=== PATIENT | female | born 1950 | race Caucasian/White ===

== ENCOUNTER → 2017-03-14 | Outpatient (CLI) | payer OTHER ==
[2016-05-27 15:00] VITALS: BP 128/74
[~2017-03-14] MED LIST: AMIT25TA PO; ASPI-630 PO; BUDE10.2 IH; CALC-507 PO; CEPH-264 PO; CRESTOR10 MG PO; DILT120C80 PO; DOXY100T PO; FAMC500T PO; FURO20TA3 PO; HYDR-2678 PO; IPRA4AER IH; LEVO40CA PO; LINA145C PO; LISI2.5T PO; PRED-220 PO; PRED1DRO OD; PRED20TA PO; RIVA10TA PO
--- NOTE | 2017-03-16 10:14 | EKG ---
[facility] [address] [place] [address] Test Date: 2017-03-16 Test Time: 08:12:35 Pat Name: JULIETTE DALTON Department: Room: Gender: F Offal Separator: Juliana Singh : 1950 Requested By: RAKAN ASTORGA Order Number: [id number] Reading MD: Interpretive Statements
== END | disposition home or self-care (01) ==
LOC: EKG 12:58
PROVIDERS: ATTEND Family Medicine
DX: I48.91 Unspecified atrial fibrillation (principal); R00.2 Palpitations
CPT/HCPCS: 93225; 93226

== ENCOUNTER 2018-04-30 12:49 | Inpatient (IN) | payer MEDICARE, OTHER ==
[~2018-04-30] VITALS: Ht 165.1 cm; Wt 126.6 kg
[~2018-04-30 12:49] MED LIST changes: +ASPI-482 PO; +DIGO125T PO; +DILT180C29 PO; +DOCU100C28 PO; +GLIM2TAB2 PO; +METF500T16 PO; +POLY17PO29 PO; +RIVA20TA2 PO
[2018-04-30 17:00] VITALS: BP 118/58
[2018-04-30] MEDS ORDERED: FERR325T14 PO (18:19)
[2018-04-30] MEDS ORDERED: ALBU2.5V14 NEB (18:19)
[2018-04-30] MEDS ORDERED: ACET325T9 PO (18:19)
[2018-04-30] MEDS ORDERED: VENL75TA PO (18:19)
[2018-04-30] MEDS ORDERED: CALC500T PO (18:19)
[2018-04-30] MEDS ORDERED: IPRA0.2S5 NEB (18:19)
[2018-04-30] MEDS ORDERED: NITR0.4T22 SL (18:19)
[2018-04-30] MEDS ORDERED: INFLUENZA VAX SCREEN BY RX. MC ONE (18:45)
[2018-04-30] MEDS ORDERED: C.DIFF MED SCREEN BY RX. MC ONE (18:45)
[2018-04-30] MEDS ORDERED: ACETAMINOPHEN 325 MG TABLET. PO PRN (18:45)
[2018-04-30] MEDS ORDERED: NITROGLYCERIN SUBLINGUAL 0.4 MG BOTTLE OF 25. SL PRN (18:45)
[2018-04-30 18:49] LABS: BASO % 0 % (0-3); EOS # 0.2 x10^3/uL (0.0-0.7); EOS % 2 % (0-3); HEMATOCRIT 34.6 % (36.0-47.0); HEMOGLOBIN 11.1 g/dL (12.0-15.5); LYMPH # 0.8 x10^3/uL (1.0-4.8); LYMPH % 9 % (24-48); MEAN CORPUSCULAR HEMOGLOBIN 27 pg (25-35); MEAN CORPUSCULAR HGB CONC 32 g/dL (31-37); MEAN CORPUSCULAR VOLUME 84 fL (79-100); MONO # 0.5 x10^3/uL (0.0-1.1); MONO % 5 % (0-9); NEUT # 7.9 x10^3uL (1.8-7.7); NEUT % 84 % (31-73); PLATELET COUNT 234 x10^3/uL (140-400); RED BLOOD COUNT 4.13 x10^6/uL (3.50-5.40); RED CELL DISTRIBUTION WIDTH 19.1 % (11.5-14.5); WHITE BLOOD COUNT 9.4 x10^3/uL (4.0-11.0)
[2018-04-30] MEDS ORDERED: POLYETHYLENE GLYCOL 3350 17 GM PACKET. PO PRN (18:53)
[2018-04-30 19:00] VITALS: BP 116/54
[2018-04-30] MEDS ORDERED: ALBUTEROL SULFATE 2.5 MG/3 ML NEBU. NEB PRN (19:00)
[2018-04-30 19:37] LABS: ALBUMIN 2.8 g/dL (3.4-5.0); ALBUMIN/GLOBULIN RATIO 0.7 (1.0-1.7); CALCIUM 9.5 mg/dL (8.5-10.1); CREATININE 0.7 mg/dL (0.6-1.0); POTASSIUM 3.5 mmol/L (3.5-5.1); TOTAL BILIRUBIN 0.4 mg/dL (0.2-1.0); TOTAL PROTEIN 6.6 g/dL (6.4-8.2)
[2018-04-30] MEDS: BUDESONIDE 0.5 MG/2 ML NEBU. NEB SCH (19:40)
[2018-04-30] MEDS: IPRATRPIUM/ALBUTEROL 0.5/2.5MG 3 ML NEBU. NEB SCH (19:40)
[2018-04-30] MEDS: ATORVASTATIN CALCIUM 40 MG TABLET. PO SCH (20:49)
[2018-04-30] MEDS: RIVAROXABAN 10 MG TABLET. PO SCH (20:49)
[2018-04-30] MEDS: DOCUSATE SODIUM 100 MG CAPSULE. PO SCH (20:49)
[2018-04-30] MEDS: AMITRIPTYLINE HCL 25 MG TABLET. PO SCH (20:49)
[2018-04-30] MEDS: HYDROcodone/APAP 5/325MG 1 TAB TABLET PO PRN (20:52)
[2018-04-30] MEDS ORDERED: NON FORMULARY ITEM (Ipratropium/Albuterol Sulfate (Combivent Respimat Inhal) 2 INH) IH SCH (21:00)
[2018-04-30 22:44] VITALS: BP 90/52
[2018-05-01 02:40] VITALS: BP 111/47
[2018-05-01 07:00] VITALS: BP 115/56
[2018-05-01] MEDS: IPRATRPIUM/ALBUTEROL 0.5/2.5MG 3 ML NEBU. NEB SCH ×4 (07:06→20:49)
[2018-05-01 07:20] LABS: BASO % 1 % (0-3); EOS # 0.2 x10^3/uL (0.0-0.7); EOS % 3 % (0-3); HEMATOCRIT 32.9 % (36.0-47.0); HEMOGLOBIN 10.3 g/dL (12.0-15.5); LYMPH # 1.1 x10^3/uL (1.0-4.8); LYMPH % 15 % (24-48); MEAN CORPUSCULAR HEMOGLOBIN 26 pg (25-35); MEAN CORPUSCULAR HGB CONC 31 g/dL (31-37); MEAN CORPUSCULAR VOLUME 84 fL (79-100); MONO # 0.4 x10^3/uL (0.0-1.1); MONO % 6 % (0-9); NEUT # 5.4 x10^3uL (1.8-7.7); NEUT % 75 % (31-73); PLATELET COUNT 218 x10^3/uL (140-400); RED BLOOD COUNT 3.92 x10^6/uL (3.50-5.40); RED CELL DISTRIBUTION WIDTH 18.8 % (11.5-14.5); WHITE BLOOD COUNT 7.2 x10^3/uL (4.0-11.0)
[2018-05-01 07:43] LABS: ALBUMIN 2.4 g/dL (3.4-5.0); ALBUMIN/GLOBULIN RATIO 0.7 (1.0-1.7); ALK PHOS 63 U/L (46-116); ALT (SGPT) 11 U/L (14-59); AST (SGOT) 9 U/L (15-37); BLOOD UREA NITROGEN 6 mg/dL (7-20); BUN/CREATININE RATIO 10 (6-20); CALCIUM 8.7 mg/dL (8.5-10.1); CARBON DIOXIDE 40 mmol/L (21-32); CHLORIDE 104 mmol/L (98-107); CREATININE 0.6 mg/dL (0.6-1.0); GFR 100.3; GLUCOSE 141 mg/dL (70-99); POTASSIUM 3.3 mmol/L (3.5-5.1); SODIUM 141 mmol/L (136-145); TOTAL BILIRUBIN 0.3 mg/dL (0.2-1.0); TOTAL PROTEIN 5.8 g/dL (6.4-8.2)
[2018-05-01] MEDS: BUDESONIDE 0.5 MG/2 ML NEBU. NEB SCH ×2 (07:59→20:49)
--- NOTE | 2018-05-01 08:01 | PDOC ---
Infectious Disease Note Vital Sign Vital Signs Vital Signs Date Time Temp Pulse Resp B/P (MAP) Pulse Ox O2 Delivery O2 Flow Rate FiO2 05/01/18 07:07 93 3.0 05/01/18 02:40 98.7 77 19 111/47 (68) Nasal Cannula 98.7 Labs Lab Laboratory Tests Test 04/30/18 18:30 05/01/18 06:31 White Blood Count 9.4 x10^3/uL (4.0-11.0) 7.2 x10^3/uL (4.0-11.0) Red Blood Count 4.13 x10^6/uL (3.50-5.40) 3.92 x10^6/uL (3.50-5.40) Hemoglobin 11.1 g/dL (12.0-15.5) 10.3 g/dL (12.0-15.5) Hematocrit 34.6 % (36.0-47.0) 32.9 % (36.0-47.0) Mean Corpuscular Volume 84 fL (79-100) 84 fL (79-100) Mean Corpuscular Hemoglobin 27 pg (25-35) 26 pg (25-35) Mean Corpuscular Hemoglobin Concent 32 g/dL (31-37) 31 g/dL (31-37) Red Cell Distribution Width 19.1 % (11.5-14.5) 18.8 % (11.5-14.5) Platelet Count 234 x10^3/uL (140-400) 218 x10^3/uL (140-400) Neutrophils (%) (Auto) 84 % (31-73) 75 % (31-73) Lymphocytes (%) (Auto) 9 % (24-48) 15 % (24-48) Monocytes (%) (Auto) 5 % (0-9) 6 % (0-9) Eosinophils (%) (Auto) 2 % (0-3) 3 % (0-3) Basophils (%) (Auto) 0 % (0-3) 1 % (0-3) Neutrophils # (Auto) 7.9 x10^3uL (1.8-7.7) 5.4 x10^3uL (1.8-7.7) Lymphocytes # (Auto) 0.8 x10^3/uL (1.0-4.8) 1.1 x10^3/uL (1.0-4.8) Monocytes # (Auto) 0.5 x10^3/uL (0.0-1.1) 0.4 x10^3/uL (0.0-1.1) Eosinophils # (Auto) 0.2 x10^3/uL (0.0-0.7) 0.2 x10^3/uL (0.0-0.7) Basophils # (Auto) 0.0 x10^3/uL (0.0-0.2) 0.0 x10^3/uL (0.0-0.2) Erythrocyte Sedimentation Rate 34 (0-25) Sodium Level 141 mmol/L (136-145) 141 mmol/L (136-145) Potassium Level 3.5 mmol/L (3.5-5.1) 3.3 mmol/L (3.5-5.1) Chloride Level 98 mmol/L (98-107) 104 mmol/L (98-107) Carbon Dioxide Level 39 mmol/L (21-32) 40 mmol/L (21-32) Anion Gap 4 (6-14) (6-14) Blood Urea Nitrogen 9 mg/dL (7-20) 6 mg/dL (7-20) Creatinine 0.7 mg/dL (0.6-1.0) 0.6 mg/dL (0.6-1.0) Estimated GFR (Cockcroft-Gault) 84.0 100.3 BUN/Creatinine Ratio 13 (6-20) 10 (6-20) Glucose Level 208 mg/dL (70-99) 141 mg/dL (70-99) Calcium Level 9.5 mg/dL (8.5-10.1) 8.7 mg/dL (8.5-10.1) Total Bilirubin 0.4 mg/dL (0.2-1.0) 0.3 mg/dL (0.2-1.0) Aspartate Amino Transf (AST/SGOT) 12 U/L (15-37) 9 U/L (15-37) Alanine Aminotransferase (ALT/SGPT) 14 U/L (14-59) 11 U/L (14-59) Alkaline Phosphatase 73 U/L (46-116) 63 U/L (46-116) Total Protein 6.6 g/dL (6.4-8.2) 5.8 g/dL (6.4-8.2) Albumin 2.8 g/dL (3.4-5.0) 2.4 g/dL (3.4-5.0) Albumin/Globulin Ratio 0.7 (1.0-1.7) 0.7 (1.0-1.7) Objective Assessment RLE cellulitis RLE fluid collection ? hematoma vs potential abscess - she appears nontoxic Tinea H/o Afib Plan Plan of Care Begin Zyvox/Zosyn/Micafungin CT Leg Consult Ortho F/u labs and cults Would administer Tetanus if not up to date in outpatient setting Thank you # [id number] TEODORO FRIEND MD May 01, 2018 08:01
[2018-05-01] MEDS: MICAFUNGIN 100 MG in IV DEXTROSE 5% 100ML 100 ML IV SCH (08:33)
[2018-05-01] MEDS: PIPERACILLIN/TAZOBACTAM 3.375 GM in IV NORMAL SALINE 50ML 50 ML IV SCH ×3 (08:37→17:14)
[2018-05-01] MEDS: HYDROcodone/APAP 5/325MG 1 TAB TABLET PO PRN ×2 (08:38→20:33)
[2018-05-01] MEDS: GLIMEPIRIDE 2 MG TABLET. PO SCH (08:38)
[2018-05-01] MEDS: DOCUSATE SODIUM 100 MG CAPSULE. PO SCH ×2 (08:38→20:32)
[2018-05-01] MEDS: VENLAFAXINE 50 MG TABLET. PO SCH ×3 (08:38→20:32)
[2018-05-01] MEDS: CALCIUM CARBONATE 500 MG TABLET PO PRN (08:39)
[2018-05-01] MEDS: LISINOPRIL 5 MG TABLET. PO SCH (08:39)
[2018-05-01] MEDS: FERROUS SULFATE 325 MG TABLET. PO SCH (08:39)
[2018-05-01] MEDS: FUROSEMIDE 40 MG TABLET. PO SCH (08:39)
[2018-05-01] MEDS: ASPIRIN CHEWABLE 81 MG TABLET. PO SCH (08:39)
[2018-05-01] MEDS: metFORMIN 500 MG TABLET PO SCH ×2 (08:39→17:14)
[2018-05-01] MEDS: predniSONE 10 MG TABLET PO SCH (08:39)
[2018-05-01] MEDS: DIGOXIN 125 MCG TABLET. PO SCH (08:40)
[2018-05-01] MEDS: CALCIUM CARB/VIT D3 500/200 TABLET. PO SCH (08:45)
--- NOTE | 2018-05-01 08:49 | CONS ---
DATE OF CONSULTATION: 05/01/2018 LOCATION: The patient in room 560. REQUESTING PHYSICIAN: Dr. Shannon. REASON FOR CONSULTATION: Cellulitis and blisters. HISTORY OF PRESENT ILLNESS: The patient is a 67-year-old with a history of obesity, diabetes and COPD. She has had complications with lower extremity cellulitis in the past and was recently admitted with pneumonia. She states last she was sleeping, had her right foot up on a chair and she had a dream that she was in the car wreck, which caused her to jerk her leg and she caught it on the chair that her leg was resting on. She did not fall. The chair did not fall. The chair did not twist. Denies any gross bleeding. She was wearing only house slippers, no pants or any socks. The following day, the leg became more red and irritated. She presented to her primary care physician. She had a number of different antibiotics at home including cephalexin, doxycycline and some levofloxacin. Despite taking the antibiotics as she is uncertain to tell me which ones she was taking for certain, but she feels she has finished the doxycycline. She followed up with Dr. Shannon yesterday and was admitted to the hospital. I was consulted for a routine consult. Currently, the patient is lying in the bed. She denies any fever, chills or sweats. She states that the pain is roughly about the same as when she came in. She has no headaches. No sore throat. No nausea, no vomiting and no diarrhea. No dysuria, frequency or urgency. PAST MEDICAL HISTORY: Positive for lower extremity cellulitis, congestive heart failure, COPD, diabetes, depression, anxiety, hypertension, hyperlipidemia, cataracts, chronic CHF, coronary artery disease, paroxysmal atrial fibrillation and obesity. PAST SURGICAL HISTORY: Positive for cataract extraction, tonsillectomy, bone spur removal, dental surgery and hysterectomy. REVIEW OF SYSTEMS: Otherwise negative except as mentioned above. ALLERGIES: STRAWBERRIES. SOCIAL HISTORY: She is a former smoker. She is . Denies alcohol or illicit drug use. She lives alone. FAMILY HISTORY: Noncontributory. CURRENT MEDICATIONS: Include Ventolin, Elavil, Children's aspirin, Lipitor, Pulmicort, digoxin, Colace, ferrous sulfate, flu vaccine x 1, Lasix, Amaryl, Prinivil, metformin, prednisone, Xarelto and Effexor. Other meds are available, have been reviewed in the chart. PHYSICAL EXAMINATION: VITAL SIGNS: T-max has been 99.2 and currently 98.7, pulse 77, respirations 19, blood pressure 111/47 and satting 93% on 3 liters. CONSTITUTIONAL: She is pleasant and cooperative. She is in no acute distress. She looks comfortable. HEENT: Pupils are status post cataract surgery. Oral cavity, pharynx was clear. NECK: Supple, no JVD. LUNGS: Clear to auscultation. HEART: S1 and S2. No murmurs. ABDOMEN: Soft, obese, nontender and nondistended with positive bowel sounds. EXTREMITIES: Without clubbing or cyanosis. Actually her bilateral lower extremities has a band of chronic venous stasis and erythema. Her right lower extremity has discoloration in the lower anterior third of the tibia. She has two bullae there, appeared to be old blood. There is some fullness about the anterior tibial area and she has some tenderness about her ankle. Her right second toe is a little discolored. There is minimal warmth. She is otherwise neurovascularly intact. Tinea on her feet bilaterally. She has peripheral IVs that are clean in the left upper extremity. SKIN: Otherwise warm to touch. NEUROLOGIC: She is nonfocal. PSYCHIATRIC: Affect is pleasant. LABORATORY DATA: White count of 7.2, hemoglobin 10.3 and platelets of 218 with a normal differential. Sed rate was 34, creatinine of 0.7 and glucose of 208. Essentially normal liver function tests. There is no imaging. IMPRESSION: 1. Right lower extremity cellulitis. 2. Right lower extremity fluid collection, possible hematoma versus potential abscess. She appears nontoxic. 3. Tinea. 4. History of atrial fibrillation. RECOMMENDATIONS: 1. We will begin Zyvox, Zosyn and micafungin. We will obtain CT scan of the leg. Consult Orthopedics for potential evaluation of hematoma versus abscess because again she does not feel or look toxic. 2. We will follow up on labs. 3. Would administer tetanus if not up-to-date in the outpatient setting. Dr. Shannon, thank you for allowing me to see and participate in this routine consult for the patient. Should you have any further concerns or questions, please do not hesitate to contact me. TEODORO FRIEND MD DR: Jose JOB#: [id number] / [id number]
--- NOTE | 2018-05-01 09:40 | PDOC ---
Provider Note Provider Note consult received, and chart reviewed. CT not yet reported, but it shows a 5.5 cm x 2.1 cm fluid collection at anterior tibia, hematoma vs abscess. I will examine the patient later today for possible surgery tomorrow. RICHA BARRON MD May 01, 2018 09:40
[2018-05-01 11:00] VITALS: BP 119/51
--- NOTE | 2018-05-01 11:23 | PN ---
DATE: 05/01/2018 LOCATION: She is in room 560. SUBJECTIVE: Briefly, the patient was seen yesterday actually in her car in the parking lot in followup. She was unable to get up and walk because of her right leg. She had been seen last week in the office with a hematoma present with no signs of infection at this point; however, the pain had increased significantly. Redness was worse. The hematoma x 2 were still intact. ASSESSMENT AND PLAN: It appeared she had cellulitis and with multiple other significant medical problems including atherosclerotic heart disease, severe chronic obstructive pulmonary disease, etc., it was elected to admit her for ID and Ortho evaluation as we felt that she may need I and D and cultures as well as broad spectrum antibiotics. Please see dictated H and P for more. KEVON MALIK MD DR: ROHIT/emily JOB#: [id number] / [id number]
[2018-05-01] MEDS: ANTI-COAG MONITOR BY PHARMACY. MC PRN (12:33)
[2018-05-01 15:00] VITALS: BP 125/59
--- NOTE | 2018-05-01 15:42 | RAD ---
CT of the right lower leg without contrast, 05/01/2018: HISTORY: Hematoma versus abscess Noncontrast scans were obtained as requested. No fracture or destructive bony lesion is seen. There is only a tiny amount of fluid in the knee joint. There is diffuse subcutaneous edema which is most prominent anterolaterally. There is an oval-shaped mass related to the skin along the anterior aspect of the lower tibia. It measures 2.8 x 3.7 x 1.1 cm. It is of slightly higher density than the musculature. A small hematoma is suspected. There is a less clearly marginated superficial lesion in the anterior soft tissues located just inferior and medial to the well-defined mass. It measures 2.3 x 1.6 x 3.2 cm. It demonstrates areas of mildly increased density. No discrete low density fluid collection is seen to suggest abscess. The underlying musculature is unremarkable. IMPRESSION: 1. Diffuse subcutaneous edema which is most prominent anterolaterally. 2. Small superficial masses anteriorly at the mid to lower aspect of the lower leg with characteristics more compatible with hematomas then abscesses. Clinical correlation is suggested. PQRS Compliance Statement: One or more of the following individualized dose reduction techniques were utilized for this examination: 1. Automated exposure control 2. Adjustment of the mA and/or kV according to patient size 3. Use of iterative reconstruction technique Electronically signed by: Joo Dai MD (05/01/2018 3:38 PM) [facility]
--- NOTE | 2018-05-01 16:07 | PDOC2 ---
CONSULT Date of Consult Date of Consult DATE: 05/01/18 TIME: 15:58 Reason for Consult Reason for Consult: Leg cellulitis and hematoma Referring Physician Referring Physician: Shiva Identification/Chief Complaint Chief Complaint Right leg swelling and pain Source Source: Chart review, Patient History of Present Illness Reason for Visit: This 67-year-old woman who is on Xarelto and aspirin kicked something in the middle the night while she was dreaming, and has developed a significant swelling on the right leg. She has been treated with antibiotics for possible abscess. CT scan done recently shows a well defined mass that is likely a hematoma or possible abscess. She has developed some overlying hemorrhagic bullae due to the severe swelling. She said it was difficult to move her toes a few days ago but has improved somewhat. The redness has improved on antibiotics. Past Medical History Cardiovascular: CAD, CHF, HTN, NM, Hyperlipidemia Pulmonary: Asthma, COPD, Other GI: No pertinent hx Heme/Onc: No pertinent hx Hepatobiliary: No pertinent hx Psych: Anxiety, Depression Musculoskeletal: Osteoarthritis Rheumatologic: No pertinent hx Infectious disease: No pertinent hx Renal/: No pertinent hx Endocrine: Diabetes Past Surgical History Past Surgical History: Cataract Removal, Tonsillectomy Family History Family History: Coronary Artery Disease Social History ALCOHOL: none Drugs: None Lives: Alone Current Medications Current Medications Current Medications Acetaminophen/ Hydrocodone Bitart (Lortab 5/325) 1 tab PRN Q4HRS PRN PO MODERATE-SEVERE PAIN Last administered on 05/01/18at 08:38; Start 04/30/18 at 17: 45 Info (FLU VACCINE SCREEN per RX) 1 each 1X ONCE MC ; Start 04/30/18 at 18:45; Stop 04/30/18 at 18:46; Status UNV Pharmacy Consult (C.diff Med Screen By Rx) 1 each 1X ONCE [facility] ; Start 04/30/18 at 18:45; Stop 04/30/18 at 18:46; Status UNV Acetaminophen (Tylenol) 650 mg PRN Q6HRS PRN PO MILD PAIN; Start 04/30/18 at 18 :45 Amitriptyline HCl (Elavil) 25 mg QHS PO Last administered on 04/30/18at 20:49; Start 04/30/18 at 21:00 Aspirin (Children'S Aspirin) 81 mg DAILY PO Last administered on 05/01/18at 08: 39; Start 05/01/18 at 09:00 Calcium Carbonate/ Glycine (Oscal) 500 mg PRN Q6HRS PRN PO HEARTBURN / GAS Last administered on 05/01/18 08:39; Start 04/30/18 at 18:45 Digoxin (Lanoxin) 125 mcg DAILY PO Last administered on 05/01/18 08:40; Start 05/01/18 at 09:00 Docusate Sodium (Colace) 100 mg BID PO Last administered on 05/01/18 08:38; Start 04/30/18 at 21:00 Ferrous Sulfate (Feosol) 325 mg DAILY PO Last administered on 05/01/18 08:39; Start 05/01/18 at 09:00 Furosemide (Lasix) 40 mg DAILY PO Last administered on 05/01/18 08:39; Start 05/01/18 at 09:00 Glimepiride (Amaryl) 2 mg DAILY PO Last administered on 05/01/18 08:38; Start 05/01/18 at 09:00 Albuterol/ Ipratropium (Duoneb) 3 ml RTQID NEB Last administered on 05/01/18 15:39; Start 04/30/18 at 20:00 Nitroglycerin (Nitrostat) 0.4 mg PRN Q5MIN PRN SL CHEST PAIN; Start 04/30/18 at 18:45 Prednisone (Prednisone) 10 mg DAILY PO Last administered on 05/01/18at 08:39; Start 05/01/18 at 09:00 Albuterol Sulfate (Ventolin Neb Soln) 2.5 mg PRN Q4HRS PRN NEB SHORTNESS OF BREATH; Start 04/30/18 at 19:00 Budesonide (Pulmicort) 0.5 mg RTBID NEB Last administered on 05/01/18at 07:59; Start 04/30/18 at 20:00 Calcium/Vitamin D (Oscal D 500mg/ 200uts) 1 tab DAILY PO Last administered on 08:45; Start 05/01/18 at 09:00 Non-Formulary Medication (Ipratropium/ Albuterol Sulfate (Combivent Respimat Inhal)) 2 inh QID IH ; Start 04/30/18 at 21:00; Status UNV Lisinopril (Prinivil) 2.5 mg DAILY PO Last administered on 05/01/18 08:39; Start 05/01/18 at 09:00 Metformin HCl (Glucophage) 500 mg BIDWMEALS PO Last administered on 05/01/18at 08:39; Start 05/01/18 at 08:00 Polyethylene Glycol (miraLAX PACKET) 17 gm PRN DAILY PRN PO CONSTIPAITON; Start 04/30/18 at 18:53 Rivaroxaban (Xarelto) 20 mg DAILYWSUP PO Last administered on 04/30/18at 20:49; Start 04/30/18 at 20:00 Atorvastatin Calcium (Lipitor) 40 mg QHS PO Last administered on 04/30/18 20: 49; Start 04/30/18 at 21:00 Venlafaxine HCl (Effexor) 50 mg TID PO Last administered on 05/01/18 13:52; Start 05/01/18 at 09:00 Influenza Virus Vaccine (Afluria Trivalent [id number] Syringe) 0.5 ml ONCE ONCE VAX IM ; Start 05/01/18 at 09:00; Stop 05/01/18 at 09:01; Status DC Linezolid/Dextrose 300 ml @ 300 mls/hr Q12HR IV Last administered on at 08:37; Start 05/01/18 at 08:00 Piperacillin Sod/ Tazobactam Sod 3.375 gm/Sodium Chloride 50 ml @ 100 mls/hr Q6HRS IV Last administered on 05/01/18at 13:50; Start 05/01/18 at 08:01 Micafungin Sodium 100 mg/Dextrose 100 ml @ 100 mls/hr Q24H IV Last administered on 05/01/18at 08:33; Start 05/01/18 at 09:00 Info (Anti-Coagulation Monitoring By Pharmacy) 1 each PRN DAILY PRN MC SEE COMMENTS Last administered on 05/01/18at 12:33; Start 05/01/18 at 12:30 Lactobacillus Rhamnosus (Culturelle) 1 cap BID PO ; Start 05/01/18 at 21:00 Active Scripts Active Reported Venlafaxine Hcl 75 Mg Tablet 150 Mg PO DAILY NITROGLYCERIN SubLingual (Nitroglycerin) 0.4 Mg Tab.subl 0.4 Mg SL PRN Q5MIN PRN Ipratropium [place] 0.2 Mg/1 Ml Solution 1 Vial NEB QID Ferrous Sulfate 325 Mg Tablet 1 Tab PO DAILY Calcium Carbonate 500 Mg Tablet 500 Mg PO PRN Q6HRS PRN Albuterol Sulfate Conc Neb Soln (Albuterol Sulfate) 2.5 Mg/0.5 Ml Vial.neb 1 Vial NEB PRN Q4HRS PRN Tylenol (Acetaminophen) 325 Mg Tablet 650 Mg PO PRN Q6HRS PRN Miralax (Polyethylene Glycol 3350) 17 Gm Powd.pack 1 Packet PO DAILY PRN Glimepiride 2 Mg Tablet 1 Tab PO DAILY Docusate Sodium 100 Mg Capsule 1 Cap PO BID Metformin Hcl 500 Mg Tablet 500 Mg PO BIDWMEALS Digoxin 125 Mcg Tablet 1 Tab PO DAILY Diltiazem 24HR Cd (Diltiazem Hcl) 180 Mg Cap.er.24h 1 Cap PO DAILY Xarelto (Rivaroxaban) 20 Mg Tablet 20 Mg PO DAILY Calcium 600 + D Tablet (Calcium Carbonate/Vitamin D3) 1 Each Tablet 1 Each PO DAILY Amitriptyline Hcl 25 Mg Tablet 1 Tab PO QHS Prednisone (Prednisone) 10 Mg Tablet 10 Mg PO DAILY Lisinopril 2.5 Mg Tablet 1 Tab PO DAILY Combivent Respimat Inhal (Ipratropium/Albuterol Sulfate) 4 Gm Aer.w.adap 2 Inh IH QID Symbicort 160-4.5 Mcg Inhaler (Budesonide/Formoterol Fumarate) 10.2 Gm Hfa.aer.ad 2 Puff IH BID Aspirin 81 Mg Tab.chew 1 Tab PO DAILY Crestor (Rosuvastatin Calcium) 10 Mg Tablet 1 Tab PO DAILY Furosemide 20 Mg Tablet 2 Tab PO DAILY Allergies Allergies: Coded Allergies: strawberry (Verified Allergy, Intermediate, 05/27/15) food allergy No Known Medication Allergies (Verified Allergy, Unknown, 05/25/16) Physical Exam General: Cooperative, No acute distress HEENT: Atraumatic Lungs: Other (getting a breathing treatment, fair inspiratory effort) Heart: Regular rate Abdomen: Soft Extremities: Other (the right leg has 2 large hemorrhagic bulla, each 6 x 4 cm , overlying the most swollen area of the distal right leg anteriorly. There is skin discoloration, on both legs, likely due to chronic edema and/or venous stasis. There is also on the right leg some distal ecchymosis that is most likely from dependent bloody drainage from the hematoma/injury. Light touch sensation is intact at the toes with minimal decreased due to neuropathy. Active range of motion of the toes and ankle shows no evidence of compartment syndrome. She is tender at the area of the hematoma.) Skin: Other (besides the 2 hemorrhagic bullae, and the ecchymosis, there is an abrasion on the lateral leg slightly distal to the hemorrhagic bullae. This seems uninvolved in the area of hematoma/abscess.) Neuro: Normal speech, Normal tone, Sensation intact Psych/Mental Status: Other (very talkative,) Vitals VITALS Vital Signs Date Time Temp Pulse Resp B/P (MAP) Pulse Ox O2 Delivery O2 Flow Rate FiO2 05/01/18 15:40 3.0 05/01/18 15:00 98.5 82 20 125/59 (81) 89 Nasal Cannula 98.5 Labs Labs Laboratory Tests Test 04/30/18 18:30 05/01/18 06:31 White Blood Count 9.4 x10^3/uL (4.0-11.0) 7.2 x10^3/uL (4.0-11.0) Red Blood Count 4.13 x10^6/uL (3.50-5.40) 3.92 x10^6/uL (3.50-5.40) Hemoglobin 11.1 g/dL (12.0-15.5) 10.3 g/dL (12.0-15.5) Hematocrit 34.6 % (36.0-47.0) 32.9 % (36.0-47.0) Mean Corpuscular Volume 84 fL (79-100) 84 fL (79-100) Mean Corpuscular Hemoglobin 27 pg (25-35) 26 pg (25-35) Mean Corpuscular Hemoglobin Concent 32 g/dL (31-37) 31 g/dL (31-37) Red Cell Distribution Width 19.1 % (11.5-14.5) 18.8 % (11.5-14.5) Platelet Count 234 x10^3/uL (140-400) 218 x10^3/uL (140-400) Neutrophils (%) (Auto) 84 % (31-73) 75 % (31-73) Lymphocytes (%) (Auto) 9 % (24-48) 15 % (24-48) Monocytes (%) (Auto) 5 % (0-9) 6 % (0-9) Eosinophils (%) (Auto) 2 % (0-3) 3 % (0-3) Basophils (%) (Auto) 0 % (0-3) 1 % (0-3) Neutrophils # (Auto) 7.9 x10^3uL (1.8-7.7) 5.4 x10^3uL (1.8-7.7) Lymphocytes # (Auto) 0.8 x10^3/uL (1.0-4.8) 1.1 x10^3/uL (1.0-4.8) Monocytes # (Auto) 0.5 x10^3/uL (0.0-1.1) 0.4 x10^3/uL (0.0-1.1) Eosinophils # (Auto) 0.2 x10^3/uL (0.0-0.7) 0.2 x10^3/uL (0.0-0.7) Basophils # (Auto) 0.0 x10^3/uL (0.0-0.2) 0.0 x10^3/uL (0.0-0.2) Erythrocyte Sedimentation Rate 34 (0-25) Sodium Level 141 mmol/L (136-145) 141 mmol/L (136-145) Potassium Level 3.5 mmol/L (3.5-5.1) 3.3 mmol/L (3.5-5.1) Chloride Level 98 mmol/L (98-107) 104 mmol/L (98-107) Carbon Dioxide Level 39 mmol/L (21-32) 40 mmol/L (21-32) Anion Gap 4 (6-14) (6-14) Blood Urea Nitrogen 9 mg/dL (7-20) 6 mg/dL (7-20) Creatinine 0.7 mg/dL (0.6-1.0) 0.6 mg/dL (0.6-1.0) Estimated GFR (Cockcroft-Gault) 84.0 100.3 BUN/Creatinine Ratio 13 (6-20) 10 (6-20) Glucose Level 208 mg/dL (70-99) 141 mg/dL (70-99) Calcium Level 9.5 mg/dL (8.5-10.1) 8.7 mg/dL (8.5-10.1) Total Bilirubin 0.4 mg/dL (0.2-1.0) 0.3 mg/dL (0.2-1.0) Aspartate Amino Transf (AST/SGOT) 12 U/L (15-37) 9 U/L (15-37) Alanine Aminotransferase (ALT/SGPT) 14 U/L (14-59) 11 U/L (14-59) Alkaline Phosphatase 73 U/L (46-116) 63 U/L (46-116) Total Protein 6.6 g/dL (6.4-8.2) 5.8 g/dL (6.4-8.2) Albumin 2.8 g/dL (3.4-5.0) 2.4 g/dL (3.4-5.0) Albumin/Globulin Ratio 0.7 (1.0-1.7) 0.7 (1.0-1.7) Laboratory Tests Test 04/30/18 18:30 05/01/18 06:31 White Blood Count 9.4 x10^3/uL (4.0-11.0) 7.2 x10^3/uL (4.0-11.0) Red Blood Count 4.13 x10^6/uL (3.50-5.40) 3.92 x10^6/uL (3.50-5.40) Hemoglobin 11.1 g/dL (12.0-15.5) 10.3 g/dL (12.0-15.5) Hematocrit 34.6 % (36.0-47.0) 32.9 % (36.0-47.0) Mean Corpuscular Volume 84 fL (79-100) 84 fL (79-100) Mean Corpuscular Hemoglobin 27 pg (25-35) 26 pg (25-35) Mean Corpuscular Hemoglobin Concent 32 g/dL (31-37) 31 g/dL (31-37) Red Cell Distribution Width 19.1 % (11.5-14.5) 18.8 % (11.5-14.5) Platelet Count 234 x10^3/uL (140-400) 218 x10^3/uL (140-400) Neutrophils (%) (Auto) 84 % (31-73) 75 % (31-73) Lymphocytes (%) (Auto) 9 % (24-48) 15 % (24-48) Monocytes (%) (Auto) 5 % (0-9) 6 % (0-9) Eosinophils (%) (Auto) 2 % (0-3) 3 % (0-3) Basophils (%) (Auto) 0 % (0-3) 1 % (0-3) Neutrophils # (Auto) 7.9 x10^3uL (1.8-7.7) 5.4 x10^3uL (1.8-7.7) Lymphocytes # (Auto) 0.8 x10^3/uL (1.0-4.8) 1.1 x10^3/uL (1.0-4.8) Monocytes # (Auto) 0.5 x10^3/uL (0.0-1.1) 0.4 x10^3/uL (0.0-1.1) Eosinophils # (Auto) 0.2 x10^3/uL (0.0-0.7) 0.2 x10^3/uL (0.0-0.7) Basophils # (Auto) 0.0 x10^3/uL (0.0-0.2) 0.0 x10^3/uL (0.0-0.2) Erythrocyte Sedimentation Rate 34 (0-25) Sodium Level 141 mmol/L (136-145) 141 mmol/L (136-145) Potassium Level 3.5 mmol/L (3.5-5.1) 3.3 mmol/L (3.5-5.1) Chloride Level 98 mmol/L (98-107) 104 mmol/L (98-107) Carbon Dioxide Level 39 mmol/L (21-32) 40 mmol/L (21-32) Anion Gap 4 (6-14) (6-14) Blood Urea Nitrogen 9 mg/dL (7-20) 6 mg/dL (7-20) Creatinine 0.7 mg/dL (0.6-1.0) 0.6 mg/dL (0.6-1.0) Estimated GFR (Cockcroft-Gault) 84.0 100.3 BUN/Creatinine Ratio 13 (6-20) 10 (6-20) Glucose Level 208 mg/dL (70-99) 141 mg/dL (70-99) Calcium Level 9.5 mg/dL (8.5-10.1) 8.7 mg/dL (8.5-10.1) Total Bilirubin 0.4 mg/dL (0.2-1.0) 0.3 mg/dL (0.2-1.0) Aspartate Amino Transf (AST/SGOT) 12 U/L (15-37) 9 U/L (15-37) Alanine Aminotransferase (ALT/SGPT) 14 U/L (14-59) 11 U/L (14-59) Alkaline Phosphatase 73 U/L (46-116) 63 U/L (46-116) Total Protein 6.6 g/dL (6.4-8.2) 5.8 g/dL (6.4-8.2) Albumin 2.8 g/dL (3.4-5.0) 2.4 g/dL (3.4-5.0) Albumin/Globulin Ratio 0.7 (1.0-1.7) 0.7 (1.0-1.7) Images Images The CT scan was reviewed again. I don't believe report as yet available. One of the hemorrhagic bullae is seen on series 5 image 38. The deeper hematoma is seen on series 5 image 20. I believe the second hemorrhagic bulla seen on exam overlies this deep hematoma. Assessment/Plan Assessment/Plan Right leg hematoma, possible abscess, with overlying skin compromise and hemorrhagic bullae. I talked to her about options for treatment. Due to the overlying skin compromise, I recommended surgical incision and drainage of the hematoma and possible treatment of an abscess if one is present. We talked about the option of nonoperative treatment but this would take many months to resolve, and could cause worsening skin problems. She agrees with surgery. We talked about potential risks of infection, nerve or artery injury, recurrence, scarring, or other complications. All of her questions about surgery were answered and she desires to proceed. We will plan surgery tomorrow approximately 9:30 a.RICHA Victor MD May 01, 2018 16:07
[2018-05-01] MEDS: RIVAROXABAN 10 MG TABLET. PO SCH (17:00)
[2018-05-01 19:20] VITALS: BP 119/56
[2018-05-01] MEDS: AMITRIPTYLINE HCL 25 MG TABLET. PO SCH (20:32)
[2018-05-01] MEDS: ATORVASTATIN CALCIUM 40 MG TABLET. PO SCH (20:32)
[2018-05-01] MEDS: LACTOBACILLUS RHAMNOSUS GG 1 CAPSULE. PO SCH (20:32)
[2018-05-01 23:58] VITALS: BP 105/51
[2018-05-02] VITALS (9 sets, daily range): BP systolic 98–115; BP diastolic 48–62
[2018-05-02] MEDS: PIPERACILLIN/TAZOBACTAM 3.375 GM in IV NORMAL SALINE 50ML 50 ML IV SCH ×5 (00:12→23:51)
[2018-05-02 06:37] LABS: CALCIUM 8.3 mg/dL (8.5-10.1); CREATININE 0.8 mg/dL (0.6-1.0); POTASSIUM 3.2 mmol/L (3.5-5.1)
[2018-05-02 06:48] LABS: BASO % 1 % (0-3); EOS # 0.3 x10^3/uL (0.0-0.7); EOS % 3 % (0-3); HEMATOCRIT 29.6 % (36.0-47.0); HEMOGLOBIN 9.3 g/dL (12.0-15.5); LYMPH # 1.1 x10^3/uL (1.0-4.8); LYMPH % 13 % (24-48); MEAN CORPUSCULAR HEMOGLOBIN 26 pg (25-35); MEAN CORPUSCULAR HGB CONC 32 g/dL (31-37); MEAN CORPUSCULAR VOLUME 83 fL (79-100); MONO # 0.5 x10^3/uL (0.0-1.1); MONO % 6 % (0-9); NEUT # 6.7 x10^3uL (1.8-7.7); NEUT % 77 % (31-73); PLATELET COUNT 208 x10^3/uL (140-400); RED BLOOD COUNT 3.55 x10^6/uL (3.50-5.40); RED CELL DISTRIBUTION WIDTH 19.3 % (11.5-14.5); WHITE BLOOD COUNT 8.6 x10^3/uL (4.0-11.0)
[2018-05-02] MEDS: IPRATRPIUM/ALBUTEROL 0.5/2.5MG 3 ML NEBU. NEB SCH ×4 (07:26→20:00)
[2018-05-02] MEDS: BUDESONIDE 0.5 MG/2 ML NEBU. NEB SCH ×2 (07:26→20:00)
[2018-05-02] MEDS: GLIMEPIRIDE 2 MG TABLET. PO SCH (07:26)
[2018-05-02] MEDS: DOCUSATE SODIUM 100 MG CAPSULE. PO SCH ×2 (07:26→20:43)
[2018-05-02] MEDS: LACTOBACILLUS RHAMNOSUS GG 1 CAPSULE. PO SCH ×2 (07:26→20:43)
[2018-05-02] MEDS: ASPIRIN CHEWABLE 81 MG TABLET. PO SCH (07:26)
[2018-05-02] MEDS: metFORMIN 500 MG TABLET PO SCH ×2 (07:26→17:33)
[2018-05-02] MEDS: FERROUS SULFATE 325 MG TABLET. PO SCH (07:27)
[2018-05-02] MEDS: DIGOXIN 125 MCG TABLET. PO SCH (07:27)
[2018-05-02] MEDS: predniSONE 10 MG TABLET PO SCH (07:27)
[2018-05-02] MEDS: CALCIUM CARB/VIT D3 500/200 TABLET. PO SCH (07:27)
[2018-05-02] MEDS: FUROSEMIDE 40 MG TABLET. PO SCH (07:27)
[2018-05-02] MEDS: VENLAFAXINE 50 MG TABLET. PO SCH ×3 (07:27→20:43)
[2018-05-02] MEDS: LISINOPRIL 5 MG TABLET. PO SCH (07:28)
--- NOTE | 2018-05-02 07:36 | PDOC ---
Infectious Disease Note Subjective Subjective Less pain. No F/C/S/N/V/D/SOA/Rash + BM ROS ROS o/w neg Vital Sign Vital Signs Vital Signs Date Time Temp Pulse Resp B/P (MAP) Pulse Ox O2 Delivery O2 Flow Rate FiO2 05/02/18 03:56 98.0 80 20 110/54 (72) 90 Nasal Cannula 3.0 98.0 Physical Exam PHYSICAL EXAM CONSTITUTIONAL: She is pleasant and cooperative. She is in no acute distress. She looks comfortable. - in bed HEENT: Pupils are status post cataract surgery. Oral cavity, pharynx was clear. NECK: Supple, no JVD. LUNGS: Clear to auscultation. HEART: S1 and S2. No murmurs. ABDOMEN: Soft, obese, nontender and nondistended with positive bowel sounds. EXTREMITIES: Without clubbing or cyanosis. Actually her bilateral lower extremities has a band of chronic venous stasis. Her RLE is elevated on a pillow. Her right lower extremity has discoloration in the lower anterior third of the tibia that has improved. She has two bullae there, appeared to be old blood. There is some fullness about the anterior tibial area and she has some tenderness about her ankle that is better today. Her right second toe has improved. There is no warmth. She is otherwise neurovascularly intact. Tinea on her feet bilaterally. She has peripheral IVs that are clean in the left upper extremity. SKIN: Otherwise warm to touch. NEUROLOGIC: She is nonfocal. PSYCHIATRIC: Affect is pleasant Labs Lab Laboratory Tests Test 05/02/18 05:30 White Blood Count 8.6 x10^3/uL (4.0-11.0) Red Blood Count 3.55 x10^6/uL (3.50-5.40) Hemoglobin 9.3 g/dL (12.0-15.5) Hematocrit 29.6 % (36.0-47.0) Mean Corpuscular Volume 83 fL (79-100) Mean Corpuscular Hemoglobin 26 pg (25-35) Mean Corpuscular Hemoglobin Concent 32 g/dL (31-37) Red Cell Distribution Width 19.3 % (11.5-14.5) Platelet Count 208 x10^3/uL (140-400) Neutrophils (%) (Auto) 77 % (31-73) Lymphocytes (%) (Auto) 13 % (24-48) Monocytes (%) (Auto) 6 % (0-9) Eosinophils (%) (Auto) 3 % (0-3) Basophils (%) (Auto) 1 % (0-3) Neutrophils # (Auto) 6.7 x10^3uL (1.8-7.7) Lymphocytes # (Auto) 1.1 x10^3/uL (1.0-4.8) Monocytes # (Auto) 0.5 x10^3/uL (0.0-1.1) Eosinophils # (Auto) 0.3 x10^3/uL (0.0-0.7) Basophils # (Auto) 0.0 x10^3/uL (0.0-0.2) Sodium Level 144 mmol/L (136-145) Potassium Level 3.2 mmol/L (3.5-5.1) Chloride Level 102 mmol/L (98-107) Carbon Dioxide Level 38 mmol/L (21-32) Anion Gap 4 (6-14) Blood Urea Nitrogen 7 mg/dL (7-20) Creatinine 0.8 mg/dL (0.6-1.0) Estimated GFR (Cockcroft-Gault) 72.0 Glucose Level 101 mg/dL (70-99) Calcium Level 8.3 mg/dL (8.5-10.1) Micro CT IMPRESSION: 1. Diffuse subcutaneous edema which is most prominent anterolaterally. 2. Small superficial masses anteriorly at the mid to lower aspect of the lower leg with characteristics more compatible with hematomas then abscesses. Clinical correlation is suggested. Objective Assessment RLE cellulitis - improved RLE fluid collection ? hematoma vs potential abscess - she appears nontoxic - better with elevation Tinea H/o Afib Plan Plan of Care Cont Zyvox/Zosyn/Micafungin Await I and D F/u labs and cults Would administer Tetanus if not up to date in outpatient setting D/w TEODORO Herbert MD May 02, 2018 07:36
[2018-05-02] MEDS ORDERED: IV RINGERS,LACTATED 1000ML 1,000 ML IV SCH (08:03)
[2018-05-02] MEDS ORDERED: LIDOCAINE 1% PF 2 ML VIAL. ID PRN (08:15)
[2018-05-02] MEDS ORDERED: fentaNYL PF VIAL 100 MCG/2 ML VIAL IV PRN ×3 (08:15→11:30)
[2018-05-02] MEDS ORDERED: ONDANSETRON PF 4 MG/2 ML VIAL. IV PRN ×2 (08:15→11:30)
[2018-05-02] MEDS ORDERED: HYDROmorphone 2 MG/ML VIAL IV PRN (08:15)
[2018-05-02] MEDS ORDERED: MORPHINE SULFATE 2 MG/ML VIAL. IV PRN ×2 (08:15→11:30)
[2018-05-02] MEDS ORDERED: PROCHLORPERAZINE 10 MG/2 ML VIAL. IV PRN (08:15)
[2018-05-02] MEDS ORDERED: POTASSIUM CHLORIDE 20 MEQ TABLET.ER. PO ONE (08:45)
[2018-05-02] MEDS ORDERED: PROPOFOL 50 ML IV ONE (08:59)
[2018-05-02] MEDS ORDERED: PROPOFOL 20 ML IV ONE (09:25)
[2018-05-02] MEDS ORDERED: fentaNYL PF VIAL 100 MCG/2 ML VIAL ONE ×2 (09:26→11:37)
[2018-05-02] MEDS ORDERED: BUPIVAC MPF-EPI 0.5%-1:200000 30 ML VIAL. ONE (10:32)
[2018-05-02] MEDS ORDERED: PHENYLEPHRINE in 0.9% NACL PF 1 MG/10 ML SYRINGE. IV ONE (11:04)
--- NOTE | 2018-05-02 11:13 | PDOC4 ---
Operative Note Operative Note Date of Procedure: May 02, 2018 Pre-Op Diagnosis: hematoma or abscess left leg Post-Op Diagnosis: hematomas left leg with full thickness skin and subcutaneous tissue loss Procedure: Incision and drainage deep hematoma left leg Surgeon: Richa Stiles MD Decker Operator: Neisha Castillo PA-C Anesthesia: Conscious sedation supplied by anesthesia EBL: 10 mL Specimens Obtained: Cultures for aerobic and anaerobic Complications: none Drains: Residual open wounds requiring wound VAC Findings: Full-thickness skin and subcutaneous cutaneous tissue loss with necrotic dermis and epidermis within the hematoma Indications for Procedure: The patient is a 67-year-old woman who injured her leg about 10 days ago. She is normally on blood thinners. Shes had increased swelling and pain, and there is concern for abscess or hematoma. CT scan shows fluid collections. I spoke to her about incision and drainage of what is likely hematoma or possible abscess, to help protect the overlying skin and prevent necrosis. The patient and I discussed the risks, benefits and alternatives of surgery. Procedure in Detail: The patient was identified in the preoperative holding area. The correct extremity was marked by me. The patient was taken to the operating room where general anesthesia was used. The patient was positioned supine on the hospital bed. She remains on scheduled antibiotics. A timeout procedure was performed. The limb was prepared in sterile fashion with Betadine. Sterile drapes were applied. I approached the proximal hematoma first and incised the epidermis on the outside of the bullae. The outward appearance of this is simply a hemorrhagic bullae, however at unroofing of the bullae, there is full-thickness dermal necrosis and liquefication of the dermis. I performed excisional debridement of the hematoma and necrotic dermis and epidermis, which leaves a full-thickness defect down to the level of the deep tissue and fascia overlying the tibia. The bone itself was not exposed but it is palpable. Cultures were taken but there was no purulence. Likewise, the second hematoma is also in outward appearance like a hemorrhagic bullae. Once I incised the epidermis however, there is full-thickness involvement, with necrosis and liquefication of the underlying dermis and subcutaneous tissue. This one is more posteromedial, and does not have any palpable bone involvement, however it is a deeper defect perhaps 2 cm deep into the subcutaneous tissues. I did excisional debridement of the skin, necrotic dermis, necrotic epidermis, and of the hematoma. This had involvement of the saphenous vein, and the saphenous vein is likely the source of the problem. There was persistent bleeding from the saphenous vein after removal of the hematoma. I made an incision medial and posterior starting at the area of tissue loss, and then ligated the saphenous vein to stop the bleeding. I used 3- 0 Vicryl on an SH needle to tie off the vein proximally and distally. This controlled the persistent bleeding and the open wound was now dry. The skin and open wounds were cleansed a final time with Betadine, and then thorough irrigation with saline was used. The posterior medial incision was closed in a single layer with 2-0 nylon and 3- 0 nylon, albeit with some difficulty due to the tissue paper quality of the skin , and I used a vertical mattress [id number] suture pattern as well as horizontal mattress sutures for skin approximation. Due to the open wounds I asked the the wound care nurse to apply a wound VAC for eventual healing. RICHA STILES MD May 02, 2018 11:13
[2018-05-02] MEDS ORDERED: DEXTROSE 50% 25 GM / 50ML DISP.SYRIN. IV PRN (11:30)
[2018-05-02] MEDS ORDERED: POLYETHYLENE GLYCOL 3350 17 GM PACKET. PO PRN (11:30)
[2018-05-02] MEDS ORDERED: HYDROcodone/APAP 7.5/325MG 1 TAB TABLET PO PRN (11:30)
[2018-05-02] MEDS ORDERED: oxyCODONE IR 5 MG TABLET PO PRN (11:30)
[2018-05-02] MEDS ORDERED: MORPHINE SULFATE 4 MG/ML VIAL. IV PRN (11:30)
[2018-05-02] MEDS: MICAFUNGIN 100 MG in IV DEXTROSE 5% 100ML 100 ML IV SCH (12:30)
--- NOTE | 2018-05-02 12:45 | PN ---
DATE: 05/02/2018 LOCATION: She is in room 560. SUBJECTIVE: The patient is awake and alert, anticipating surgery this morning. The leg continues to be sore. She has had no fevers, decent appetite and denies any change in her normal breathing pattern. OBJECTIVE: VITAL SIGNS: Stable. She is afebrile. She is awake and alert. CHEST: Reveals decreased breath sounds, clear. HEART: Regular rate and rhythm. ABDOMEN: Benign. LABORATORY DATA: Hemoglobin has decreased to 9.3 on blood count. Potassium is low at 3.2 and will be replaced. CT scan of the right leg shows hematoma and edema. No definite abscess. IMPRESSION: 1. Hematoma and cellulitis, right lower leg. 2. Diabetes. 3. Multiple other problems and chronic medical issues. PLAN: Agree with I and D of this, continued antibiotics will be ongoing. ID and Surgery help is appreciated. Wound care may need to follow after. KEVON MALIK MD DR: ROHIT/emily JOB#: [id number] / [id number]
[2018-05-02] MEDS: HYDROcodone/APAP 5/325MG 1 TAB TABLET PO PRN ×2 (15:33→20:46)
[2018-05-02] MEDS: ANTI-COAG MONITOR BY PHARMACY. MC PRN (16:52)
[2018-05-02] MEDS: RIVAROXABAN 10 MG TABLET. PO SCH (17:33)
--- NOTE | 2018-05-02 18:39 | HP ---
ADMIT DATE: 05/02/2018 CHIEF COMPLAINT AND HISTORY OF PRESENT ILLNESS: This is a 67-year-old white female who is well known to me from followup in the office. The patient was seen first for this problem on 04/24/2018. She had cut her leg under a chair and right leg and banged it. She was having severe pain. She had 2 hematomas on her right anterior foreleg, the largest of which was a size of a "small handbag." There was no surrounding warmth, significant redness and it was felt to just be a hematoma. She was instructed to follow back up with pain or swelling had increased. She followed up on the day of admission with the leg being red or warmer, much more tender and it was felt the hematomas were probably infected, although they were still not draining and it was because of her all of her underlying health issues including diabetes, was admitted for IV antibiotics, ID consultation as well as Ortho and Wound Care evaluation. PAST MEDICAL HISTORY: Well documented in old charts includes COPD, congestive heart failure, diabetes, atherosclerotic heart disease, iron deficiency anemia, COPD which is O2 dependent, history of atrial fibrillation. MEDICATIONS: Brought with the patient, listed on the computer and have been addressed. ALLERGIES: She has no known drug allergies. SOCIAL HISTORY: She is a reformed smoker, nondrinker, does not use drugs. , lives at home alone. FAMILY HISTORY: Noncontributory. REVIEW OF SYSTEMS: That as mentioned above. PHYSICAL EXAMINATION: GENERAL: She is a well-developed, well-nourished, white female who appears uncomfortable. VITAL SIGNS: Stable. She is afebrile in the office. HEAD, EYES, EARS, NOSE AND THROAT: Remarkable for glasses. NECK: Supple. No adenopathy or thyromegaly. CHEST: Reveals diminished breath sounds but clear. HEART: Regular rate and rhythm without S3, S4, or murmur. ABDOMEN: Soft, nontender, without hepatosplenomegaly or mass. EXTREMITIES: Reveal the right desai hematoma as described above with surrounding cellulitis. NEUROLOGIC: She is intact. IMPRESSION: 1. Right leg hematoma x 2 with cellulitis surrounding at this point. 2. Multiple other problems listed above. PLAN: The patient has been admitted. Once again, ID, Ortho and Wound Care consults have been placed. The patient will be monitored, managed and treated appropriately. KEVON MALIK MD DR: Brenden JOB#: [id number] / [id number]
[2018-05-02] MEDS: ATORVASTATIN CALCIUM 40 MG TABLET. PO SCH (20:43)
[2018-05-02] MEDS: AMITRIPTYLINE HCL 25 MG TABLET. PO SCH (20:43)
[2018-05-03 03:00] VITALS: BP 125/73
[2018-05-03 05:17] LABS: HEMATOCRIT 31.6 % (36.0-47.0); HEMOGLOBIN 9.8 g/dL (12.0-15.5)
[2018-05-03] MEDS ORDERED: MAGNESIUM HYDROXIDE 2,400 MG/30 ML ORAL.SUSP. PO PRN (06:00)
[2018-05-03] MEDS: PIPERACILLIN/TAZOBACTAM 3.375 GM in IV NORMAL SALINE 50ML 50 ML IV SCH ×4 (06:08→23:36)
[2018-05-03] MEDS: HYDROcodone/APAP 7.5/325MG 1 TAB TABLET PO PRN (06:15)
[2018-05-03 07:00] VITALS: BP 97/44
[2018-05-03] MEDS: BUDESONIDE 0.5 MG/2 ML NEBU. NEB SCH ×2 (07:50→19:23)
[2018-05-03] MEDS: IPRATRPIUM/ALBUTEROL 0.5/2.5MG 3 ML NEBU. NEB SCH ×4 (07:50→19:23)
[2018-05-03] MEDS: LISINOPRIL 5 MG TABLET. PO SCH ×2 (09:00→21:00)
[2018-05-03] MEDS: FUROSEMIDE 40 MG TABLET. PO SCH (09:00)
[2018-05-03] MEDS: VENLAFAXINE 50 MG TABLET. PO SCH ×3 (09:33→20:31)
[2018-05-03] MEDS: ASPIRIN CHEWABLE 81 MG TABLET. PO SCH (09:33)
[2018-05-03] MEDS: SENNOSIDES/DOCUSATE 8.6/50MG TABLET. PO SCH (09:33)
[2018-05-03] MEDS: FERROUS SULFATE 325 MG TABLET. PO SCH (09:33)
[2018-05-03] MEDS: metFORMIN 500 MG TABLET PO SCH ×2 (09:34→17:47)
[2018-05-03] MEDS: CALCIUM CARBONATE 500 MG TABLET PO PRN (09:34)
[2018-05-03] MEDS: DIGOXIN 125 MCG TABLET. PO SCH (09:34)
[2018-05-03] MEDS: GLIMEPIRIDE 2 MG TABLET. PO SCH (09:34)
[2018-05-03] MEDS: predniSONE 10 MG TABLET PO SCH (09:34)
--- NOTE | 2018-05-03 09:34 | PDOC ---
Infectious Disease Note Subjective Subjective Less pain. No F/C/S/N/V/D/SOA/Rash + BM ROS ROS o/w neg Vital Sign Vital Signs Vital Signs Date Time Temp Pulse Resp B/P (MAP) Pulse Ox O2 Delivery O2 Flow Rate FiO2 05/03/18 07:51 95 Nasal Cannula 4.0 05/03/18 07:00 98.0 67 20 97/44 (61) 98.0 Physical Exam PHYSICAL EXAM CONSTITUTIONAL: She is pleasant and cooperative. She is in no acute distress. She looks comfortable. - in bed. eating HEENT: Pupils are status post cataract surgery. Oral cavity, pharynx was clear. NECK: Supple, no JVD. LUNGS: Clear to auscultation. HEART: S1 and S2. No murmurs. ABDOMEN: Soft, obese, nontender and nondistended with positive bowel sounds. EXTREMITIES: Without clubbing or cyanosis. Actually her bilateral lower extremities has a band of chronic venous stasis. Her RLE has vac in place. Less erythema There is no warmth. She is otherwise neurovascularly intact. Tinea on her feet bilaterally - better. She has peripheral IVs that are clean in the left upper extremity. SKIN: Otherwise warm to touch. NEUROLOGIC: She is nonfocal. PSYCHIATRIC: Affect is pleasant Labs Lab Laboratory Tests Test 05/02/18 11:23 05/03/18 04:40 Glucose (Fingerstick) 92 mg/dL (70-99) Hemoglobin 9.8 g/dL (12.0-15.5) Hematocrit 31.6 % (36.0-47.0) Mean Corpuscular Hemoglobin Concent 31 g/dL (31-37) Micro CT IMPRESSION: 1. Diffuse subcutaneous edema which is most prominent anterolaterally. 2. Small superficial masses anteriorly at the mid to lower aspect of the lower leg with characteristics more compatible with hematomas then abscesses. Clinical correlation is suggested. Objective Assessment RLE cellulitis - improved RLE fluid collection - hematoma s/p I and D 05/02 Tinea H/o Afib Plan Plan of Care Cont Zyvox/Zosyn/Micafungin F/u labs and cults Would administer Tetanus if not up to date in outpatient setting TEODORO FRIEND MD May 03, 2018 09:34
[2018-05-03] MEDS: LACTOBACILLUS RHAMNOSUS GG 1 CAPSULE. PO SCH ×2 (09:38→20:31)
[2018-05-03] MEDS: DOCUSATE SODIUM 100 MG CAPSULE. PO SCH ×2 (09:39→20:31)
[2018-05-03] MEDS: CALCIUM CARB/VIT D3 500/200 TABLET. PO SCH (09:43)
[2018-05-03] MEDS: MICAFUNGIN 100 MG in IV DEXTROSE 5% 100ML 100 ML IV SCH (09:44)
[2018-05-03 11:00] VITALS: BP 115/65
--- NOTE | 2018-05-03 12:10 | PN ---
DATE: 05/03/2018 LOCATION: She is in room 560. SUBJECTIVE: The patient is awake and alert, getting ready to eat breakfast, feels like her leg pain is decreased with surgery yesterday. OBJECTIVE: VITAL SIGNS: Stable. She is afebrile. HEAD, EYES, EARS, NOSE AND THROAT: Unremarkable. NECK: Supple without bruit or thyromegaly. CHEST: Reveals decreased breath sounds, but clear. HEART: Regular rate and rhythm. ABDOMEN: Benign. EXTREMITY: Wound VAC present in the right leg. LABORATORY DATA: Hemoglobin is 9.8 this morning. Postoperatively, potassium was 3.2 yesterday and potassium was ordered, but no recheck has been on this morning. We will order the same. The patient is being followed by Ortho and ID on broad-spectrum antibiotics as well as wound care. ASSESSMENT: 1. Hematoma x 2, right leg with I and D yesterday by Surgery. 2. Cellulitis of the right leg. 3. Diabetes. 4. Severe chronic obstructive pulmonary disease. 5. Atherosclerotic heart disease. PLAN: Continue present antibiotics, await cultures from surgery. Wound VAC is ongoing and we will need to make plans at discharge on where her best destination is with the same. KEVON MALIK MD DR: ROHIT/emily JOB#: [id number] / [id number]
[2018-05-03] MEDS: ANTI-COAG MONITOR BY PHARMACY. MC PRN (12:53)
[2018-05-03 15:00] VITALS: BP 113/66
[2018-05-03] MEDS ORDERED: BISACODYL 10 MG SUPP.RECT. PR PRN (16:00)
--- NOTE | 2018-05-03 17:27 | PDOC ---
PROGRESS NOTES Subjective Subjective Pt states pain in right leg is better today. Objective Vital Signs Vital Signs Date Time Temp Pulse Resp B/P (MAP) Pulse Ox O2 Delivery O2 Flow Rate FiO2 05/03/18 16:00 Nasal Cannula 4.0 05/03/18 11:00 98.3 71 20 115/65 (82) 90 98.3 Physical Exam Wound vac intact and working to right lower leg. Ecchymosis surrounding wounds. Calf soft and nontender. Good dorsiflexion and plantarflexion at foot. Labs Laboratory Tests Test 05/02/18 05:30 05/02/18 11:23 05/03/18 04:40 05/03/18 17:05 White Blood Count 8.6 x10^3/uL (4.0-11.0) Red Blood Count 3.55 x10^6/uL (3.50-5.40) Hemoglobin 9.3 g/dL (12.0-15.5) 9.8 g/dL (12.0-15.5) Hematocrit 29.6 % (36.0-47.0) 31.6 % (36.0-47.0) Mean Corpuscular Volume 83 fL (79-100) Mean Corpuscular Hemoglobin 26 pg (25-35) Mean Corpuscular Hemoglobin Concent 32 g/dL (31-37) 31 g/dL (31-37) Red Cell Distribution Width 19.3 % (11.5-14.5) Platelet Count 208 x10^3/uL (140-400) Neutrophils (%) (Auto) 77 % (31-73) Lymphocytes (%) (Auto) 13 % (24-48) Monocytes (%) (Auto) 6 % (0-9) Eosinophils (%) (Auto) 3 % (0-3) Basophils (%) (Auto) 1 % (0-3) Neutrophils # (Auto) 6.7 x10^3uL (1.8-7.7) Lymphocytes # (Auto) 1.1 x10^3/uL (1.0-4.8) Monocytes # (Auto) 0.5 x10^3/uL (0.0-1.1) Eosinophils # (Auto) 0.3 x10^3/uL (0.0-0.7) Basophils # (Auto) 0.0 x10^3/uL (0.0-0.2) Sodium Level 144 mmol/L (136-145) Potassium Level 3.2 mmol/L (3.5-5.1) Chloride Level 102 mmol/L (98-107) Carbon Dioxide Level 38 mmol/L (21-32) Anion Gap 4 (6-14) Blood Urea Nitrogen 7 mg/dL (7-20) Creatinine 0.8 mg/dL (0.6-1.0) Estimated GFR (Cockcroft-Gault) 72.0 Glucose Level 101 mg/dL (70-99) Calcium Level 8.3 mg/dL (8.5-10.1) Glucose (Fingerstick) 92 mg/dL (70-99) 108 mg/dL (70-99) Laboratory Tests Test 05/03/18 04:40 05/03/18 17:05 Hemoglobin 9.8 g/dL (12.0-15.5) Hematocrit 31.6 % (36.0-47.0) Mean Corpuscular Hemoglobin Concent 31 g/dL (31-37) Glucose (Fingerstick) 108 mg/dL (70-99) Assessment Assessment POD #1 right leg debridement and wound vac application Plan Plan of Care Continue wound vac, per wound care. Pt december WBAT. NINOSKA CHEUNG May 03, 2018 17:27
[2018-05-03] MEDS: RIVAROXABAN 10 MG TABLET. PO SCH (17:46)
[2018-05-03] MEDS: HYDROcodone/APAP 5/325MG 1 TAB TABLET PO PRN (17:46)
[2018-05-03 19:00] VITALS: BP 97/52
[2018-05-03] MEDS: ATORVASTATIN CALCIUM 40 MG TABLET. PO SCH (20:31)
[2018-05-03] MEDS: AMITRIPTYLINE HCL 25 MG TABLET. PO SCH (20:31)
[2018-05-03 23:00] VITALS: BP 99/54
[2018-05-04 02:46] VITALS: BP 111/58
[2018-05-04] MEDS: PIPERACILLIN/TAZOBACTAM 3.375 GM in IV NORMAL SALINE 50ML 50 ML IV SCH ×3 (05:50→17:22)
[2018-05-04] MEDS: HYDROcodone/APAP 7.5/325MG 1 TAB TABLET PO PRN ×3 (06:15→17:28)
[2018-05-04 07:00] VITALS: BP 112/64
[2018-05-04 07:28] LABS: CREATININE 0.7 mg/dL (0.6-1.0)
[2018-05-04] MEDS: BUDESONIDE 0.5 MG/2 ML NEBU. NEB SCH ×2 (07:33→19:17)
[2018-05-04] MEDS: IPRATRPIUM/ALBUTEROL 0.5/2.5MG 3 ML NEBU. NEB SCH ×4 (07:33→19:17)
[2018-05-04] MEDS: LACTOBACILLUS RHAMNOSUS GG 1 CAPSULE. PO SCH ×2 (08:20→20:45)
[2018-05-04] MEDS: DOCUSATE SODIUM 100 MG CAPSULE. PO SCH ×2 (08:20→20:45)
[2018-05-04] MEDS: SENNOSIDES/DOCUSATE 8.6/50MG TABLET. PO SCH (08:20)
[2018-05-04] MEDS: GLIMEPIRIDE 2 MG TABLET. PO SCH (08:20)
[2018-05-04] MEDS: CALCIUM CARB/VIT D3 500/200 TABLET. PO SCH (08:20)
[2018-05-04] MEDS: predniSONE 10 MG TABLET PO SCH (08:20)
[2018-05-04] MEDS: VENLAFAXINE 50 MG TABLET. PO SCH ×3 (08:20→20:43)
[2018-05-04] MEDS: metFORMIN 500 MG TABLET PO SCH ×2 (08:20→17:22)
[2018-05-04] MEDS: ASPIRIN CHEWABLE 81 MG TABLET. PO SCH (08:21)
[2018-05-04] MEDS: FUROSEMIDE 40 MG TABLET. PO SCH (08:21)
[2018-05-04] MEDS: FERROUS SULFATE 325 MG TABLET. PO SCH (08:21)
[2018-05-04] MEDS: DIGOXIN 125 MCG TABLET. PO SCH (08:25)
[2018-05-04] MEDS: MICAFUNGIN 100 MG in IV DEXTROSE 5% 100ML 100 ML IV SCH (08:26)
--- NOTE | 2018-05-04 08:30 | PN ---
DATE: 05/04/2018 LOCATION: She is in room 560. SUBJECTIVE: The patient is awake, alert, getting ready to eat breakfast, feels like the leg does feel a little better on a day to day basis. The wound VAC is in place. OBJECTIVE: VITAL SIGNS: Stable. She is afebrile. She was on 4 liters per nasal cannula O2. CHEST: Diminished breath sounds, but clear. HEART: Regular. ABDOMEN: Benign. EXTREMITIES: Revealed the right leg wound VAC in place. LABORATORY DATA: Potassium was up to 4.0 this morning with good renal function. IV antibiotics are going on for cellulitis of the right leg. Gram stain and surgical cultures do not show any organisms, but culture is pending. IMPRESSION: 1. Hematoma x 2, right leg, status post incision and drainage with surrounding cellulitis, on IV antibiotics. 2. Diabetes. 3. Severe chronic obstructive pulmonary disease. 4. Atherosclerotic heart disease. PLAN: Continue antibiotics, await cultures. Wound VAC is ongoing. Wound Care is following. Discharge plans per ID when they feel that we are ready. I have talked with her again about [facility] and her thought at this point in time is that she would rather go home and come back to the Wound Care or nearest home health at discharge. KEVON MALIK MD DR: ROHIT/emily JOB#: [id number] / [id number]
--- NOTE | 2018-05-04 08:48 | PDOC ---
Infectious Disease Note Subjective Subjective Less pain. No F/C/S/N/V/D/SOA/Rash + BM, Eating ROS ROS o/w neg Vital Sign Vital Signs Vital Signs Date Time Temp Pulse Resp B/P (MAP) Pulse Ox O2 Delivery O2 Flow Rate FiO2 05/04/18 08:25 78 112/64 05/04/18 07:34 95 Nasal Cannula 4.0 05/04/18 07:00 97.4 18 97.4 Physical Exam PHYSICAL EXAM CONSTITUTIONAL: She is pleasant and cooperative. She is in no acute distress. She looks comfortable. - in bed. HEENT: Pupils are status post cataract surgery. Oral cavity, pharynx was clear. NECK: Supple, no JVD. LUNGS: Clear to auscultation. HEART: S1 and S2. No murmurs. ABDOMEN: Soft, obese, nontender and nondistended with positive bowel sounds. EXTREMITIES: Without clubbing or cyanosis. Actually her bilateral lower extremities has a band of chronic venous stasis. Her RLE has vac in place. Less erythema There is no warmth. Still some tenderness. She is otherwise neurovascularly intact. Tinea on her feet bilaterally - better. She has peripheral IVs that are clean in the left upper extremity. SKIN: Otherwise warm to touch. NEUROLOGIC: She is nonfocal. PSYCHIATRIC: Affect is pleasant Labs Lab Laboratory Tests Test 05/03/18 17:05 05/04/18 04:50 Glucose (Fingerstick) 108 mg/dL (70-99) Sodium Level 145 mmol/L (136-145) Potassium Level 4.0 mmol/L (3.5-5.1) Chloride Level 104 mmol/L (98-107) Carbon Dioxide Level 37 mmol/L (21-32) Anion Gap 4 (6-14) Blood Urea Nitrogen 9 mg/dL (7-20) Creatinine 0.7 mg/dL (0.6-1.0) Estimated GFR (Cockcroft-Gault) 84.0 Glucose Level 85 mg/dL (70-99) Calcium Level 9.0 mg/dL (8.5-10.1) Micro CT IMPRESSION: 1. Diffuse subcutaneous edema which is most prominent anterolaterally. 2. Small superficial masses anteriorly at the mid to lower aspect of the lower leg with characteristics more compatible with hematomas then abscesses. Clinical correlation is suggested. Objective Assessment RLE cellulitis - improved RLE fluid collection - hematoma s/p I and D 05/02 Tinea H/o Afib Plan Plan of Care Cont Zyvox but change to po and cont/Zosyn/Micafungin - taper soon F/u labs and cults Recommended skilled Would administer Tetanus if not up to date in outpatient setting TEODORO FRIEND MD May 04, 2018 08:48
[2018-05-04 11:00] VITALS: BP 102/55
[2018-05-04] MEDS: ANTI-COAG MONITOR BY PHARMACY. MC PRN (13:18)
[2018-05-04] MEDS: HYDROcodone/APAP 5/325MG 1 TAB TABLET PO PRN (14:09)
[2018-05-04 15:00] VITALS: BP 136/74
[2018-05-04] MEDS: RIVAROXABAN 10 MG TABLET. PO SCH (17:22)
[2018-05-04 19:00] VITALS: BP 115/63
[2018-05-04] MEDS: LINEZOLID 600 MG TABLET PO SCH (20:43)
[2018-05-04] MEDS: AMITRIPTYLINE HCL 25 MG TABLET. PO SCH (20:43)
[2018-05-04] MEDS: LISINOPRIL 5 MG TABLET. PO SCH (20:44)
[2018-05-04] MEDS: ATORVASTATIN CALCIUM 40 MG TABLET. PO SCH (20:45)
[2018-05-04 22:36] VITALS: BP 127/69
[2018-05-05] MEDS: PIPERACILLIN/TAZOBACTAM 3.375 GM in IV NORMAL SALINE 50ML 50 ML IV SCH ×4 (00:01→17:22)
[2018-05-05] MEDS: HYDROcodone/APAP 7.5/325MG 1 TAB TABLET PO PRN ×2 (00:06→08:53)
[2018-05-05 02:44] VITALS: BP 129/72
[2018-05-05 07:00] VITALS: BP 114/73
[2018-05-05] MEDS: BUDESONIDE 0.5 MG/2 ML NEBU. NEB SCH ×2 (07:49→19:37)
[2018-05-05] MEDS: IPRATRPIUM/ALBUTEROL 0.5/2.5MG 3 ML NEBU. NEB SCH ×4 (07:49→19:37)
[2018-05-05] MEDS: DIGOXIN 125 MCG TABLET. PO SCH (08:48)
[2018-05-05] MEDS: LINEZOLID 600 MG TABLET PO SCH ×2 (08:48→21:07)
[2018-05-05] MEDS: SENNOSIDES/DOCUSATE 8.6/50MG TABLET. PO SCH (08:50)
[2018-05-05] MEDS: FERROUS SULFATE 325 MG TABLET. PO SCH (08:51)
[2018-05-05] MEDS: CALCIUM CARB/VIT D3 500/200 TABLET. PO SCH (08:51)
[2018-05-05] MEDS: LACTOBACILLUS RHAMNOSUS GG 1 CAPSULE. PO SCH ×2 (08:51→21:07)
[2018-05-05] MEDS: DOCUSATE SODIUM 100 MG CAPSULE. PO SCH ×2 (08:51→21:07)
[2018-05-05] MEDS: ASPIRIN CHEWABLE 81 MG TABLET. PO SCH (08:51)
[2018-05-05] MEDS: predniSONE 10 MG TABLET PO SCH (08:51)
[2018-05-05] MEDS: metFORMIN 500 MG TABLET PO SCH ×2 (08:51→17:22)
[2018-05-05] MEDS: VENLAFAXINE 50 MG TABLET. PO SCH ×3 (08:51→21:06)
[2018-05-05] MEDS: FUROSEMIDE 40 MG TABLET. PO SCH (08:51)
[2018-05-05] MEDS: GLIMEPIRIDE 2 MG TABLET. PO SCH (08:51)
[2018-05-05] MEDS: MICAFUNGIN 100 MG in IV DEXTROSE 5% 100ML 100 ML IV SCH (08:54)
[2018-05-05 11:00] VITALS: BP 121/66
--- NOTE | 2018-05-05 12:08 | PN ---
DATE: 05/05/2018 LOCATION: She is in room 560. SUBJECTIVE: The patient is awake, alert, just finished breakfast, leg is feeling better. We had a long discussion at home versus [facility], which ID recommends. 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 OBJECTIVE: VITAL SIGNS: Stable. She is afebrile. She remains on 4 liters per nasal cannula oxygen. GENERAL: She is awake and alert. CHEST: Reveals decreased breath sounds but clear. HEART: Regular. ABDOMEN: Benign. EXTREMITIES: Wound VAC is in place. Cultures to date from surgery are negative. IMPRESSION: 1. Cellulitis of the leg, improving on IV antibiotics. 2. Hematomas x 2, right leg, status post incision and drainage. 3. Diabetes. 4. Chronic obstructive pulmonary disease. 5. Atherosclerotic heart disease. PLAN: Continue to follow ID's lead with plans for discharge being that of [facility] versus home with home health. She will need ongoing wound VAC after discharge. KEVON MALIK MD DR: ROHIT/emily JOB#: [id number] / [id number]
--- NOTE | 2018-05-05 12:49 | PDOC ---
Infectious Disease Note Subjective Subjective Feeling alright Right leg sensitive to touch No increase pain Denies FC/SN/VD/SOA ROS ROS per HPI otherwise neg Vital Sign Vital Signs Vital Signs Date Time Temp Pulse Resp B/P (MAP) Pulse Ox O2 Delivery O2 Flow Rate FiO2 05/05/18 11:22 99 Nasal Cannula 4.5 05/05/18 11:00 98.0 68 22 121/66 (84) 98.0 Physical Exam PHYSICAL EXAM GENERAL: Alert, sitting in the chair, legs elevated LUNGS: Clear to auscultation. 4L O2 HEART: S1 and S2. No murmurs. ABDOMEN: Soft, obese, nontender and nondistended with positive bowel sounds. EXTREMITIES: BLE chronic venous stasis. RLE has vac in place w/ some area erythema and bruising. tender to touch. SKIN: without rash BOOK BINDER: Alert, responds appropriately PIV Labs Micro Leg ANAEROBIC-AEROBIC CULTURE Preliminary Preliminary report ANAEROBIC RES 1 Preliminary Comment No anaerobes recovered in 24 hours. AEROBIC CULT Final Final report AEROBIC RES 1 Final Comment No growth in 56 - 72 hours. GRAM STAIN Final Final report GRAM STAIN RES 1 Final Comment No white blood cells seen. GRAM STAIN RES 2 Final No organisms seen Objective Assessment RLE cellulitis - improved RLE fluid collection - hematoma s/p I and D 05/02. No growth Tinea H/o Afib Plan Plan of Care Cont Zyvox, Zosyn and Micafungin - taper soon Local wound care Recommended skilled Would administer Tetanus if not up to date in outpatient setting Patient seen and examined. Chart reviewed in detail. Case discussed with INSPECTION MACHINE TENDER. I agree with the above Plan MIGUELINA CORTES APRN May 05, 2018 12:49 BEL GASTON MD May 05, 2018 18:23
[2018-05-05 15:00] VITALS: BP 119/74
[2018-05-05] MEDS: ANTI-COAG MONITOR BY PHARMACY. MC PRN (16:32)
[2018-05-05] MEDS: RIVAROXABAN 10 MG TABLET. PO SCH (17:22)
[2018-05-05 19:00] VITALS: BP 117/56
[2018-05-05] MEDS: ATORVASTATIN CALCIUM 40 MG TABLET. PO SCH (21:07)
[2018-05-05] MEDS: AMITRIPTYLINE HCL 25 MG TABLET. PO SCH (21:07)
[2018-05-05] MEDS: LISINOPRIL 5 MG TABLET. PO SCH (21:07)
[2018-05-05 23:00] VITALS: BP 118/64
[2018-05-06] MEDS: PIPERACILLIN/TAZOBACTAM 3.375 GM in IV NORMAL SALINE 50ML 50 ML IV SCH ×5 (00:23→23:27)
[2018-05-06 03:00] VITALS: BP 103/47
[2018-05-06] MEDS: HYDROcodone/APAP 7.5/325MG 1 TAB TABLET PO PRN ×3 (03:20→12:56)
[2018-05-06 07:00] VITALS: BP 122/58
[2018-05-06] MEDS: IPRATRPIUM/ALBUTEROL 0.5/2.5MG 3 ML NEBU. NEB SCH ×4 (07:34→20:01)
[2018-05-06] MEDS: BUDESONIDE 0.5 MG/2 ML NEBU. NEB SCH ×2 (07:34→20:01)
[2018-05-06] MEDS: VENLAFAXINE 50 MG TABLET. PO SCH ×3 (08:14→20:35)
[2018-05-06] MEDS: DOCUSATE SODIUM 100 MG CAPSULE. PO SCH ×2 (08:14→20:34)
[2018-05-06] MEDS: ASPIRIN CHEWABLE 81 MG TABLET. PO SCH (08:14)
[2018-05-06] MEDS: GLIMEPIRIDE 2 MG TABLET. PO SCH (08:14)
[2018-05-06] MEDS: LACTOBACILLUS RHAMNOSUS GG 1 CAPSULE. PO SCH ×2 (08:14→20:34)
[2018-05-06] MEDS: LINEZOLID 600 MG TABLET PO SCH ×2 (08:14→20:34)
[2018-05-06] MEDS: DIGOXIN 125 MCG TABLET. PO SCH (08:15)
[2018-05-06] MEDS: CALCIUM CARB/VIT D3 500/200 TABLET. PO SCH (08:15)
[2018-05-06] MEDS: SENNOSIDES/DOCUSATE 8.6/50MG TABLET. PO SCH (08:15)
[2018-05-06] MEDS: FERROUS SULFATE 325 MG TABLET. PO SCH (08:15)
[2018-05-06] MEDS: FUROSEMIDE 40 MG TABLET. PO SCH (08:15)
[2018-05-06] MEDS: metFORMIN 500 MG TABLET PO SCH ×2 (08:15→17:34)
[2018-05-06] MEDS: predniSONE 10 MG TABLET PO SCH (08:15)
[2018-05-06] MEDS: MICAFUNGIN 100 MG in IV DEXTROSE 5% 100ML 100 ML IV SCH (08:16)
[2018-05-06 11:00] VITALS: BP 128/64
[2018-05-06 15:00] VITALS: BP 117/62
[2018-05-06] MEDS: ANTI-COAG MONITOR BY PHARMACY. MC PRN (16:01)
[2018-05-06] MEDS: RIVAROXABAN 10 MG TABLET. PO SCH (17:35)
--- NOTE | 2018-05-06 18:07 | PDOC ---
Infectious Disease Note Subjective Subjective Feeling pretty good No increase pain Denies F/C/S/N/V/D/SOA ROS ROS per HPI otherwise neg Vital Sign Vital Signs Vital Signs Date Time Temp Pulse Resp B/P (MAP) Pulse Ox O2 Delivery O2 Flow Rate FiO2 05/06/18 15:48 Nasal Cannula 4.5 05/06/18 15:00 98.4 74 20 117/62 (80) 95 98.4 Physical Exam PHYSICAL EXAM GENERAL: Alert, sitting in the chair, legs elevated eating, legs in dependent position LUNGS: Clear to auscultation. HEART: S1 and S2. No murmurs. ABDOMEN: Soft, obese, nontender and nondistended with positive bowel sounds. EXTREMITIES: BLE chronic venous stasis. RLE has vac in place w/ some area erythema and bruising. tender to touch. SKIN: without rash GRASSLAND CONSERVATIONIST: Alert, responds appropriately PIV Labs Micro Leg ANAEROBIC-AEROBIC CULTURE Preliminary Preliminary report ANAEROBIC RES 1 Preliminary Comment No anaerobes recovered in 24 hours. AEROBIC CULT Final Final report AEROBIC RES 1 Final Comment No growth in 56 - 72 hours. GRAM STAIN Final Final report GRAM STAIN RES 1 Final Comment No white blood cells seen. GRAM STAIN RES 2 Final No organisms seen Objective Assessment RLE cellulitis - improved RLE fluid collection - hematoma s/p I and D 05/02. No growth Tinea H/o Afib Plan Plan of Care Cont Zyvox, Zosyn and Micafungin - taper soon Local wound care Recommended skilled Would administer Tetanus if not up to date in outpatient setting P Pt seen and examined. Chart reviewed in detail. Case discussed with CURB MACHINE OPERATOR. Agree with above plan MIGUELINA CORTES APRN May 06, 2018 18:07 BEL GASTON MD May 06, 2018 18:43
[2018-05-06 19:00] VITALS: BP 103/59
[2018-05-06] MEDS: LISINOPRIL 5 MG TABLET. PO SCH (20:34)
[2018-05-06] MEDS: ATORVASTATIN CALCIUM 40 MG TABLET. PO SCH (20:35)
[2018-05-06] MEDS: AMITRIPTYLINE HCL 25 MG TABLET. PO SCH (20:35)
[2018-05-06 22:38] VITALS: BP 104/55
--- NOTE | 2018-05-06 23:04 | PN ---
DATE: 05/06/2018 LOCATION: Room 560. SUBJECTIVE: The patient is awake and alert, has finished breakfast and is getting ready to start her day. Still has pain in the right leg, but definitely improved from admission. OBJECTIVE: VITAL SIGNS: Stable. She is afebrile. GENERAL: She remains on her 4 L per nasal cannula oxygen. She is awake and alert. CHEST: Reveals decreased breath sounds, but clear. HEART: Regular. ABDOMEN: Benign. EXTREMITIES: Right leg cellulitis is definitely less warm. Wound VAC is in place. IMPRESSION: 1. Cellulitis of leg, improving on IV antibiotics. 2. Hematoma times 2, right leg, status post incision and drainage. 3. Diabetes. 4. Chronic obstructive pulmonary disease. 5. Atherosclerotic heart disease. PLAN: Continue present antibiotics. Cultures at the time of surgery are negative to date and likely will returned materials inspector negative and will follow ID's lead on the same. Discharge planning has been discussed with the patient multiple times and will either be home with outpatient wound care versus senior living and I am trying to push her towards a senior living facility. KEVON MALIK MD DR: ROHIT/emily JOB#: [id number] / [id number]
[2018-05-07] VITALS (7 sets, daily range): BP systolic 111–136; BP diastolic 51–64
[2018-05-07] MEDS: PIPERACILLIN/TAZOBACTAM 3.375 GM in IV NORMAL SALINE 50ML 50 ML IV SCH (05:41)
[2018-05-07] MEDS: BUDESONIDE 0.5 MG/2 ML NEBU. NEB SCH ×2 (07:07→19:40)
[2018-05-07] MEDS: IPRATRPIUM/ALBUTEROL 0.5/2.5MG 3 ML NEBU. NEB SCH ×4 (07:07→19:40)
[2018-05-07] MEDS: LACTOBACILLUS RHAMNOSUS GG 1 CAPSULE. PO SCH ×2 (08:33→20:44)
[2018-05-07] MEDS: CALCIUM CARB/VIT D3 500/200 TABLET. PO SCH (08:33)
[2018-05-07] MEDS: VENLAFAXINE 50 MG TABLET. PO SCH ×3 (08:33→20:45)
[2018-05-07] MEDS: predniSONE 10 MG TABLET PO SCH (08:33)
[2018-05-07] MEDS: metFORMIN 500 MG TABLET PO SCH ×2 (08:34→17:31)
[2018-05-07] MEDS: GLIMEPIRIDE 2 MG TABLET. PO SCH (08:34)
[2018-05-07] MEDS: FERROUS SULFATE 325 MG TABLET. PO SCH (08:34)
[2018-05-07] MEDS: ASPIRIN CHEWABLE 81 MG TABLET. PO SCH (08:34)
[2018-05-07] MEDS: DOCUSATE SODIUM 100 MG CAPSULE. PO SCH ×2 (08:34→20:44)
[2018-05-07] MEDS: LINEZOLID 600 MG TABLET PO SCH ×2 (08:34→20:44)
[2018-05-07] MEDS: FUROSEMIDE 40 MG TABLET. PO SCH (08:35)
[2018-05-07] MEDS: SENNOSIDES/DOCUSATE 8.6/50MG TABLET. PO SCH (08:35)
[2018-05-07] MEDS: MICAFUNGIN 100 MG in IV DEXTROSE 5% 100ML 100 ML IV SCH (08:36)
[2018-05-07] MEDS: DIGOXIN 125 MCG TABLET. PO SCH (08:36)
[2018-05-07] MEDS: HYDROcodone/APAP 7.5/325MG 1 TAB TABLET PO PRN ×2 (09:33→20:45)
--- NOTE | 2018-05-07 11:10 | PDOC ---
Infectious Disease Note Subjective Subjective Feeling pretty good No increase pain Denies F/C/S/N/V/D/SOA Vital Sign Vital Signs Vital Signs Date Time Temp Pulse Resp B/P (MAP) Pulse Ox O2 Delivery O2 Flow Rate FiO2 05/07/18 10:55 97.7 75 20 125/54 (77) 94 Nasal Cannula 4.5 97.7 Physical Exam PHYSICAL EXAM GENERAL: Alert, sitting in the chair, legs elevated eating, legs in dependent position LUNGS: Clear to auscultation. HEART: S1 and S2. No murmurs. ABDOMEN: Soft, obese, nontender and nondistended with positive bowel sounds. EXTREMITIES: BLE chronic venous stasis. RLE has vac in place w/ some area erythema and bruising. tender to touch. 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 No growth Tinea H/o Afib Plan Plan of Care change antibiotics to po zyvox and augmentin cont wound vac pt/ot ROBB ROBLEDO MD May 07, 2018 11:10
[2018-05-07] MEDS: AMOXICILLIN/K CLAV 875/125MG TABLET. PO SCH ×2 (12:09→20:45)
--- NOTE | 2018-05-07 17:09 | PN ---
DATE: 05/07/2018 LOCATION: She is in room 560. SUBJECTIVE: The patient is awake, alert and was eating breakfast, does feel better from the leg perspective on a daily basis. OBJECTIVE: VITAL SIGNS: Stable. She is afebrile. GENERAL: She is awake and alert. CHEST: Reveals diminished breath sounds, but clear. HEART: Regular. ABDOMEN: Benign. EXTREMITIES: Right lower extremity has ongoing wound VAC. There is decreased swelling of the leg and decreased redness and warmth. LABORATORY DATA: Cultures to date are negative, but anaerobic is still pending. She remains on broad-spectrum antibiotic coverage. O2 is still at 4.5 liters per nasal cannula. IMPRESSION: 1. Cellulitis, right lower extremity with hematoma x 2, status post incision and drainage with wound VAC in place. 2. Diabetes. 3. Chronic obstructive pulmonary disease. 4. Atherosclerotic heart disease. PLAN: Continue present antibiotics. Further plans with this is in regard to ID. Once again, we discussed [facility] versus home and this question is still open. I will at least order at this point in time aids social worker to look for [facility] and make approval of the same as I would anticipate discharge in the next day or so. KEVON MALIK MD DR: ROHIT/emily JOB#: [id number] / [id number]
[2018-05-07] MEDS: RIVAROXABAN 10 MG TABLET. PO SCH (17:31)
[2018-05-07] MEDS: ATORVASTATIN CALCIUM 40 MG TABLET. PO SCH (20:44)
[2018-05-07] MEDS: AMITRIPTYLINE HCL 25 MG TABLET. PO SCH (20:44)
[2018-05-07] MEDS: LISINOPRIL 5 MG TABLET. PO SCH (21:00)
[2018-05-08 03:00] VITALS: BP 121/80
[2018-05-08] MEDS: HYDROcodone/APAP 7.5/325MG 1 TAB TABLET PO PRN (03:23)
[2018-05-08 07:00] VITALS: BP 109/52
[2018-05-08] MEDS: IPRATRPIUM/ALBUTEROL 0.5/2.5MG 3 ML NEBU. NEB SCH ×2 (07:33→11:54)
[2018-05-08] MEDS: BUDESONIDE 0.5 MG/2 ML NEBU. NEB SCH (07:33)
--- NOTE | 2018-05-08 08:27 | PDOC ---
GENERAL General: see discharge summary. VITAL SIGNS Vital Signs: Vital Signs Date Time Temp Pulse Resp B/P (MAP) Pulse Ox O2 Delivery O2 Flow Rate FiO2 05/08/18 07:36 94 Nasal Cannula 4.5 05/08/18 07:00 97.5 75 20 109/52 (71) 97.5 I & O I & O Intake and Output 05/08/18 07:00 Intake Total 2970 ml Output Total 1800 ml Balance 1170 ml Intake Oral 2820 ml IV Total 150 ml Output Urine Total 1800 ml # Voids 1 # Bowel Movements 1 ALLERGIES Allergies: Allergies Coded Allergies Type Severity Reaction Last Updated Verified strawberry Allergy Intermediate 05/27/15 Yes No Known Medication Allergies Allergy Unknown 05/25/16 Yes MEDS Medications: Current Medications Medications (Trade) Dose Ordered Sig/Zulma Start Time Stop Time Status Last Admin Dose Admin Acetaminophen (Tylenol) 650 mg PRN Q6HRS PRN 04/30/18 18:45 Acetaminophen/ Hydrocodone Bitart (Lortab 5/325) 1 tab PRN Q4HRS PRN 04/30/18 17:45 05/04/18 14:09 1 TAB Acetaminophen/ Hydrocodone Bitart (Lortab 7.5/325) 2 tab PRN Q4HRS PRN 05/02/18 11:30 Albuterol Sulfate (Ventolin Neb Soln) 2.5 mg PRN Q4HRS PRN 04/30/18 19:00 Albuterol/ Ipratropium (Duoneb) 3 ml RTQID 04/30/18 20:00 05/08/18 07:33 3 ML Amitriptyline HCl (Elavil) 25 mg QHS 04/30/18 21:00 05/07/18 20:44 25 MG Amoxicillin/ Clavulanate Potassium (Augmentin 875/ 125mg) 1 tab BID 05/07/18 12:00 05/07/18 20:45 1 TAB Aspirin (Children'S Aspirin) 81 mg DAILY 05/01/18 09:00 05/07/18 08:34 81 MG Atorvastatin Calcium (Lipitor) 40 mg QHS 04/30/18 21:00 05/07/18 20:44 40 MG Bisacodyl (Dulcolax Supp) 10 mg 1X PRN PRN 05/03/18 16:00 05/04/18 15:59 DC Budesonide (Pulmicort) 0.5 mg RTBID 04/30/18 20:00 05/08/18 07:33 0.5 MG Bupivacaine HCl/ Epinephrine Bitart (Sensorcain-Mpf Epi 0.5%-1:[id number]) 30 ml STK-MED ONCE 05/02/18 10:32 05/02/18 11:33 DC 05/02/18 11:00 10 ML Calcium Carbonate/ Glycine (Oscal) 500 mg PRN Q6HRS PRN 04/30/18 18:45 05/03/18 09:34 500 MG Calcium/Vitamin D (Oscal D 500mg/ 200uts) 1 tab DAILY 05/01/18 09:00 05/07/18 08:33 1 TAB Dextrose (Dextrose 50%-Water Syringe) 12.5 gm PRN Q15MIN PRN 05/02/18 11:30 Digoxin (Lanoxin) 125 mcg DAILY 05/01/18 09:00 05/07/18 08:36 125 MCG Docusate Sodium (Colace) 100 mg BID 04/30/18 21:00 05/07/18 20:44 100 MG Fentanyl Citrate (Fentanyl 2ml Vial) 100 mcg STK-MED ONCE 05/02/18 11:37 05/02/18 11:38 DC Ferrous Sulfate (Feosol) 325 mg DAILY 05/01/18 09:00 05/07/18 08:34 325 MG Furosemide (Lasix) 40 mg DAILY 05/01/18 09:00 05/07/18 08:35 40 MG Glimepiride (Amaryl) 2 mg DAILY 05/01/18 09:00 05/07/18 08:34 2 MG Hydromorphone HCl (Dilaudid) 0.5 mg PRN Q10MIN PRN 05/02/18 08:15 05/02/18 18:00 DC Influenza Virus Vaccine (Afluria Trivalent [id number] Syringe) 0.5 ml ONCE ONCE 05/01/18 09:00 05/01/18 09:01 DC Info (Anti-Coagulation Monitoring By Pharmacy) 1 each PRN DAILY PRN 05/01/18 12:30 05/06/18 16:01 1 EACH Info (FLU VACCINE SCREEN per RX) 1 each 1X ONCE 04/30/18 18:45 04/30/18 18:46 UNV Lactobacillus Rhamnosus (Culturelle) 1 cap BID 05/01/18 21:00 05/07/18 20:44 1 CAP Lidocaine HCl (Xylocaine-Mpf 1% 2ml Vial) 2 ml 1X PRN PRN 05/02/18 08:15 05/02/18 18:00 DC Linezolid (Zyvox) 600 mg BID 05/04/18 21:00 05/07/18 20:44 600 MG Linezolid/Dextrose 300 ml @ 300 mls/hr Q12HR 05/01/18 08:00 05/04/18 09:22 DC 05/04/18 08:26 300 MLS/HR Lisinopril (Prinivil) 2.5 mg QHS 05/03/18 21:00 05/06/18 20:34 2.5 MG Magnesium Hydroxide (Milk Of Magnesia) 2,400 mg 1X PRN PRN 05/03/18 06:00 05/04/18 05:59 DC Metformin HCl (Glucophage) 500 mg BIDWMEALS 05/01/18 08:00 05/07/18 17:31 500 MG Micafungin Sodium 100 mg/Dextrose 100 ml @ 100 mls/hr Q24H 05/01/18 09:00 05/07/18 11:12 DC 05/07/18 08:36 100 MLS/HR Morphine Sulfate (Morphine Sulfate) 4 mg PRN Q2HR PRN 05/02/18 11:30 Nitroglycerin (Nitrostat) 0.4 mg PRN Q5MIN PRN 04/30/18 18:45 Non-Formulary Medication (Ipratropium/ Albuterol Sulfate (Combivent Respimat Inhal)) 2 inh QID 04/30/18 21:00 UNV Ondansetron HCl (Zofran) 4 mg PRN Q4HRS PRN 05/02/18 11:30 Oxycodone HCl (Roxicodone) 5 mg PRN Q3HRS PRN 05/02/18 11:30 05/06/18 20:35 5 MG Pharmacy Consult (C.diff Med Screen By Rx) 1 each 1X ONCE 04/30/18 18:45 04/30/18 18:46 UNV Phenylephrine HCl (PHENYLEPHRINE in 0.9% NACL PF) 1 mg STK-MED ONCE 05/02/18 11:04 05/02/18 11:05 DC Piperacillin Sod/ Tazobactam Sod 3.375 gm/Sodium Chloride 50 ml @ 100 mls/hr Q6HRS 05/01/18 08:01 05/07/18 11:12 DC 05/07/18 05:41 100 MLS/HR Polyethylene Glycol (miraLAX PACKET) 17 gm PRN DAILY PRN 05/02/18 11:30 05/05/18 21:18 17 GM Potassium Chloride (Klor-Con) 20 meq 1X ONCE 05/02/18 08:45 05/02/18 08:46 DC 05/02/18 12:30 20 MEQ Prednisone (Prednisone) 10 mg DAILY 05/01/18 09:00 05/07/18 08:33 10 MG Prochlorperazine Edisylate (Compazine) 5 mg PACU PRN PRN 05/02/18 08:15 05/02/18 18:00 DC Propofol 50 ml @ As Directed STK-MED ONCE 05/02/18 08:59 05/02/18 10:00 DC Ringer's Solution 1,000 ml @ 30 mls/hr Q24H 05/02/18 08:03 05/02/18 20:02 DC 05/02/18 08:52 30 MLS/HR Rivaroxaban (Xarelto) 20 mg DAILYWSUP 04/30/18 20:00 05/07/18 17:31 20 MG Senna/Docusate Sodium (Senna Plus) 1 tab DAILY 05/03/18 09:00 05/07/18 08:35 1 TAB Venlafaxine HCl (Effexor) 50 mg TID 05/01/18 09:00 05/07/18 20:45 50 MG KEVON MALIK MD May 08, 2018 08:27
[2018-05-08] MEDS: DIGOXIN 125 MCG TABLET. PO SCH (09:00)
[2018-05-08] MEDS: FERROUS SULFATE 325 MG TABLET. PO SCH (09:06)
[2018-05-08] MEDS: FUROSEMIDE 40 MG TABLET. PO SCH (09:06)
[2018-05-08] MEDS: AMOXICILLIN/K CLAV 875/125MG TABLET. PO SCH (09:06)
[2018-05-08] MEDS: predniSONE 10 MG TABLET PO SCH (09:06)
[2018-05-08] MEDS: SENNOSIDES/DOCUSATE 8.6/50MG TABLET. PO SCH (09:06)
[2018-05-08] MEDS: LACTOBACILLUS RHAMNOSUS GG 1 CAPSULE. PO SCH (09:07)
[2018-05-08] MEDS: CALCIUM CARBONATE 500 MG TABLET PO PRN (09:07)
[2018-05-08] MEDS: metFORMIN 500 MG TABLET PO SCH (09:07)
[2018-05-08] MEDS: DOCUSATE SODIUM 100 MG CAPSULE. PO SCH (09:07)
[2018-05-08] MEDS: VENLAFAXINE 50 MG TABLET. PO SCH (09:07)
[2018-05-08] MEDS: ASPIRIN CHEWABLE 81 MG TABLET. PO SCH (09:07)
[2018-05-08] MEDS: GLIMEPIRIDE 2 MG TABLET. PO SCH (09:07)
[2018-05-08] MEDS: CALCIUM CARB/VIT D3 500/200 TABLET. PO SCH (09:12)
[2018-05-08] MEDS: LISINOPRIL 5 MG TABLET. PO SCH (09:13)
[2018-05-08] MEDS: LINEZOLID 600 MG TABLET PO SCH (09:13)
[2018-05-08 10:58] VITALS: BP 112/58
[2018-05-08] MEDS: HYDROcodone/APAP 5/325MG 1 TAB TABLET PO PRN (10:58)
--- NOTE | 2018-05-08 11:17 | PDOC ---
Infectious Disease Note Subjective Subjective Feeling pretty good No increase pain Denies F/C/S/N/V/D/SOA Vital Sign Vital Signs Vital Signs Date Time Temp Pulse Resp B/P (MAP) Pulse Ox O2 Delivery O2 Flow Rate FiO2 05/08/18 10:58 97.7 77 20 112/58 (76) 94 Nasal Cannula 4.5 97.7 Physical Exam PHYSICAL EXAM GENERAL: Alert, sitting in the chair, legs elevated eating, legs in dependent position LUNGS: Clear to auscultation. HEART: S1 and S2. No murmurs. ABDOMEN: Soft, obese, nontender and nondistended with positive bowel sounds. EXTREMITIES: BLE chronic venous stasis. RLE has vac in place w/ some area erythema and bruising. tender to touch. 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 No growth Tinea H/o Afib Plan Plan of Care po zyvox and augmentin cont wound vac pt/ot ok to d/c ROBB ROBLEDO MD May 08, 2018 11:17
--- NOTE | 2018-05-08 14:45 | DS ---
DATE OF DISCHARGE: 05/08/2018 PRIMARY DIAGNOSES: 1. Cellulitis of the right lower extremity. 2. Hematoma x 2, right lower extremity with I and D of the same. 3. Diabetes. 4. Severe chronic obstructive pulmonary disease, O2 dependent. 5. Congestive heart failure. 6. Atherosclerotic heart disease. 7. Atrial fibrillation. CHIEF COMPLAINT AND HISTORY OF PRESENT ILLNESS: This is a 67-year-old white female who is well known to me from followup in the office. The patient was admitted after failed outpatient treatment for 2 hematomas on her right leg and developing cellulitis on the day of admission despite the fact that she was on antibiotics. SUMMARY OF STAY: The patient was admitted. She was started on IV antibiotics. ID and Ortho followed throughout the stay. Ortho took her to surgery with debridement of the hematomas, both of which went down deep. Wound VAC was applied after surgery and was on for the remainder of the hospitalization. Cultures still remain negative at the time of discharge with no finals available yet on anaerobes. ID transitioned her to p.o. Zyvox and Augmentin on the day prior to discharge. She was accepted at [facility] and will be going on the day of dismissal. DISPOSITION: The patient is discharged to [facility], on regular diet as her sugars have been quite good. ACTIVITY: As tolerated. PT and OT to evaluate. DISCHARGE MEDICATIONS: Listed on the med rec and have been addressed. KEVON MALIK MD DR: ROHIT/emily JOB#: [id number] / [id number]
== END 2018-05-08 12:30 | DRG 570 ==
LOC: 5 SOUTH 16:19
PROVIDERS: ADMIT Family Medicine; ATTEND Family Medicine
PROC: 0JBN0ZZ Excision of Right Lower Leg Subcutaneous Tissue and Fascia, Open Approach (ICD-10-PCS; principal; 2018-04-30)
DX: L03.115 Cellulitis of right lower limb (principal); E43 Unspecified severe protein-calorie malnutrition; Z68.42 Body mass index [BMI] 45.0-49.9, adult; S80.12XA Contusion of left lower leg, initial encounter; E11.9 Type 2 diabetes mellitus without complications; B35.9 Dermatophytosis, unspecified; E78.5 Hyperlipidemia, unspecified; I11.0 Hypertensive heart disease with heart failure; I25.10 Atherosclerotic heart disease of native coronary artery without angina pectoris; E66.9 Obesity, unspecified; F32.9 Major depressive disorder, single episode, unspecified; F41.9 Anxiety disorder, unspecified; H26.9 Unspecified cataract; M19.90 Unspecified osteoarthritis, unspecified site; I48.0 Paroxysmal atrial fibrillation; I50.9 Heart failure, unspecified; J44.9 Chronic obstructive pulmonary disease, unspecified; S80.11XA Contusion of right lower leg, initial encounter; Z79.01 Long term (current) use of anticoagulants; Z82.49 Family history of ischemic heart disease and other diseases of the circulatory system; Z87.891 Personal history of nicotine dependence; Z90.710 Acquired absence of both cervix and uterus; Z87.01 Personal history of pneumonia (recurrent); Z99.81 Dependence on supplemental oxygen; Z60.2 Problems related to living alone; I25.2 Old myocardial infarction; Z98.49 Cataract extraction status, unspecified eye; X58.XXXA Exposure to other specified factors, initial encounter; Y93.89 Activity, other specified; Y92.89 Other specified places as the place of occurrence of the external cause; Y99.8 Other external cause status
CPT/HCPCS: 36415; 73700; 80048; 80053; 82962; 85014; 85018; 85025; 85651; 87071; 87075; 94640; 94760; J2020; J2248; J2370; J2543; J2704; J3010; J3490; J7120; J7512; J7620; J7626; 97110; 97116; 97530; 97535; A4461

== ENCOUNTER → 2018-05-25 | Outpatient (CLI) | payer MEDICARE, OTHER ==
[2018-05-08 10:58] VITALS: BP 112/58
[~2018-05-25] MED LIST changes: +ACET325T9 PO; +ALBU2.5V14 NEB; +CALC500T PO; +FERR325T14 PO; +IPRA0.2S5 NEB; +NITR0.4T22 SL; +VENL75TA PO
== END | disposition home or self-care (01) ==
LOC: PMGWOUND 07:39
PROVIDERS: ATTEND Preventive Medicine Undersea and Hyperbaric Medicine
DX: E11.622 Type 2 diabetes mellitus with other skin ulcer (principal); I87.311 Chronic venous hypertension (idiopathic) with ulcer of right lower extremity; L97.212 Non-pressure chronic ulcer of right calf with fat layer exposed; E11.36 Type 2 diabetes mellitus with diabetic cataract; I11.0 Hypertensive heart disease with heart failure; I50.9 Heart failure, unspecified; J44.9 Chronic obstructive pulmonary disease, unspecified; F41.9 Anxiety disorder, unspecified; F32.9 Major depressive disorder, single episode, unspecified; E78.5 Hyperlipidemia, unspecified; I25.2 Old myocardial infarction; I48.0 Paroxysmal atrial fibrillation; M19.90 Unspecified osteoarthritis, unspecified site; I25.10 Atherosclerotic heart disease of native coronary artery without angina pectoris; E66.01 Morbid (severe) obesity due to excess calories; Z68.41 Body mass index [BMI] 40.0-44.9, adult; Z87.891 Personal history of nicotine dependence; Z90.710 Acquired absence of both cervix and uterus; Z48.817 Encounter for surgical aftercare following surgery on the skin and subcutaneous tissue
CPT/HCPCS: 97597

== ENCOUNTER → 2018-05-25 | Outpatient (CLI) | payer MEDICARE, OTHER ==
[2018-05-08 10:58] VITALS: BP 112/58
--- NOTE | 2018-05-25 16:21 | RAD ---
Bilateral lower extremity ABIs for nonhealing wounds on the right leg. Findings and impression: Bilateral ABIs are performed. The BIANCA on the right is 1.1 on the left 1.3. These are normal. Electronically signed by: Johnathan Beltran MD (05/25/2018 4:17 PM) [id number]
--- NOTE | 2018-05-25 16:28 | RAD ---
Right lower extreme arterial duplex ultrasound study for nonhealing wound. TECHNIQUE AND FINDINGS: Real-time grayscale and color and spectral Doppler evaluation of the right lower extremity arteries is performed. Mild or moderate atherosclerotic plaque is seen on grayscale imaging involving the common femoral and superficial femoral artery. No areas related peak systolic velocity are present in any distribution, and arterial waveforms are triphasic throughout the common femoral, superficial femoral, popliteal, posterior tibial, peroneal and dorsalis pedis arteries, and biphasic within the anterior tibial artery. IMPRESSION: 1. Mild/moderate multifocal atherosclerosis with no findings to suggest hemodynamically significant stenosis.. Electronically signed by: Johnathan Beltran MD (05/25/2018 4:24 PM) [facility]
== END | disposition home or self-care (01) ==
LOC: US 14:15
PROVIDERS: ATTEND Preventive Medicine Undersea and Hyperbaric Medicine
DX: S81.801D Unspecified open wound, right lower leg, subsequent encounter (principal); I70.291 Other atherosclerosis of native arteries of extremities, right leg; X58.XXXD Exposure to other specified factors, subsequent encounter
CPT/HCPCS: 93922; 93926

== ENCOUNTER → 2018-05-28 | Outpatient (CLI) | payer MEDICARE, OTHER ==
[2018-05-08 10:58] VITALS: BP 112/58
== END | disposition home or self-care (01) ==
LOC: PMGWOUND 12:49
PROVIDERS: ATTEND Preventive Medicine Undersea and Hyperbaric Medicine
DX: E11.622 Type 2 diabetes mellitus with other skin ulcer (principal); I87.311 Chronic venous hypertension (idiopathic) with ulcer of right lower extremity; L97.212 Non-pressure chronic ulcer of right calf with fat layer exposed; E11.36 Type 2 diabetes mellitus with diabetic cataract; I11.0 Hypertensive heart disease with heart failure; I50.9 Heart failure, unspecified; F32.9 Major depressive disorder, single episode, unspecified; F41.9 Anxiety disorder, unspecified; J44.9 Chronic obstructive pulmonary disease, unspecified; I48.91 Unspecified atrial fibrillation; I25.2 Old myocardial infarction; I48.0 Paroxysmal atrial fibrillation; E78.5 Hyperlipidemia, unspecified; M19.90 Unspecified osteoarthritis, unspecified site; I25.10 Atherosclerotic heart disease of native coronary artery without angina pectoris; E66.01 Morbid (severe) obesity due to excess calories; Z68.41 Body mass index [BMI] 40.0-44.9, adult; Z87.891 Personal history of nicotine dependence; Z90.710 Acquired absence of both cervix and uterus
CPT/HCPCS: 29581

== ENCOUNTER → 2018-05-30 | Outpatient (CLI) | payer MEDICARE, OTHER ==
[2018-05-08 10:58] VITALS: BP 112/58
== END | disposition home or self-care (01) ==
LOC: PMGWOUND 11:09
PROVIDERS: ATTEND Preventive Medicine Undersea and Hyperbaric Medicine
DX: E11.622 Type 2 diabetes mellitus with other skin ulcer (principal); L97.515 Non-pressure chronic ulcer of other part of right foot with muscle involvement without evidence of necrosis; E11.36 Type 2 diabetes mellitus with diabetic cataract; I11.0 Hypertensive heart disease with heart failure; I50.9 Heart failure, unspecified; F41.9 Anxiety disorder, unspecified; J44.9 Chronic obstructive pulmonary disease, unspecified; F32.9 Major depressive disorder, single episode, unspecified; I25.2 Old myocardial infarction; I48.0 Paroxysmal atrial fibrillation; E78.5 Hyperlipidemia, unspecified; M19.90 Unspecified osteoarthritis, unspecified site; I25.10 Atherosclerotic heart disease of native coronary artery without angina pectoris; E66.01 Morbid (severe) obesity due to excess calories; Z68.41 Body mass index [BMI] 40.0-44.9, adult; Z87.891 Personal history of nicotine dependence; Z90.710 Acquired absence of both cervix and uterus
CPT/HCPCS: 29581; 97597

== ENCOUNTER → 2018-06-06 | Outpatient (CLI) | payer MEDICARE, OTHER ==
[2018-05-08 10:58] VITALS: BP 112/58
== END | disposition home or self-care (01) ==
LOC: PMGWOUND 11:23
PROVIDERS: ATTEND Preventive Medicine Undersea and Hyperbaric Medicine
DX: E11.622 Type 2 diabetes mellitus with other skin ulcer (principal); L97.815 Non-pressure chronic ulcer of other part of right lower leg with muscle involvement without evidence of necrosis; E11.36 Type 2 diabetes mellitus with diabetic cataract; I11.0 Hypertensive heart disease with heart failure; I50.9 Heart failure, unspecified; F41.9 Anxiety disorder, unspecified; F32.9 Major depressive disorder, single episode, unspecified; J44.9 Chronic obstructive pulmonary disease, unspecified; I48.91 Unspecified atrial fibrillation; I25.10 Atherosclerotic heart disease of native coronary artery without angina pectoris; E78.5 Hyperlipidemia, unspecified; I25.2 Old myocardial infarction; I48.0 Paroxysmal atrial fibrillation; M19.90 Unspecified osteoarthritis, unspecified site; E66.01 Morbid (severe) obesity due to excess calories; Z68.41 Body mass index [BMI] 40.0-44.9, adult; Z87.891 Personal history of nicotine dependence; Z90.710 Acquired absence of both cervix and uterus
CPT/HCPCS: 29581; 97597

== ENCOUNTER → 2018-06-13 | Outpatient (CLI) | payer MEDICARE, OTHER | END | disposition home or self-care (01) | LOC: PMGWOUND 11:20 | PROVIDERS: ATTEND Preventive Medicine Undersea and Hyperbaric Medicine | DX: E11.622 Type 2 diabetes mellitus with other skin ulcer (principal); L97.812 Non-pressure chronic ulcer of other part of right lower leg with fat layer exposed; I87.8 Other specified disorders of veins; E11.36 Type 2 diabetes mellitus with diabetic cataract; I11.0 Hypertensive heart disease with heart failure; I50.9 Heart failure, unspecified; F41.9 Anxiety disorder, unspecified; I48.0 Paroxysmal atrial fibrillation; J44.9 Chronic obstructive pulmonary disease, unspecified; F32.9 Major depressive disorder, single episode, unspecified; E66.01 Morbid (severe) obesity due to excess calories; I25.10 Atherosclerotic heart disease of native coronary artery without angina pectoris; E78.5 Hyperlipidemia, unspecified; I25.2 Old myocardial infarction; Z68.41 Body mass index [BMI] 40.0-44.9, adult; Z87.891 Personal history of nicotine dependence; Z90.710 Acquired absence of both cervix and uterus | CPT/HCPCS: 29581 ==

== ENCOUNTER → 2018-06-22 | Outpatient (CLI) | payer MEDICARE, OTHER | END | disposition home or self-care (01) | LOC: PMGWOUND 11:16 | PROVIDERS: ATTEND Preventive Medicine Undersea and Hyperbaric Medicine | DX: E11.622 Type 2 diabetes mellitus with other skin ulcer (principal); L97.812 Non-pressure chronic ulcer of other part of right lower leg with fat layer exposed; E11.36 Type 2 diabetes mellitus with diabetic cataract; I11.0 Hypertensive heart disease with heart failure; I50.9 Heart failure, unspecified; J44.9 Chronic obstructive pulmonary disease, unspecified; F41.9 Anxiety disorder, unspecified; F32.9 Major depressive disorder, single episode, unspecified; I48.91 Unspecified atrial fibrillation; E78.5 Hyperlipidemia, unspecified; I25.2 Old myocardial infarction; I48.0 Paroxysmal atrial fibrillation; M19.90 Unspecified osteoarthritis, unspecified site; I25.10 Atherosclerotic heart disease of native coronary artery without angina pectoris; E66.01 Morbid (severe) obesity due to excess calories; Z68.41 Body mass index [BMI] 40.0-44.9, adult; Z87.891 Personal history of nicotine dependence; Z90.710 Acquired absence of both cervix and uterus | CPT/HCPCS: 29581 ==

== ENCOUNTER → 2018-07-04 | Outpatient (CLI) | payer MEDICARE, OTHER | END | disposition home or self-care (01) | LOC: PMGWOUND 10:45 | PROVIDERS: ATTEND Preventive Medicine Undersea and Hyperbaric Medicine | DX: E11.622 Type 2 diabetes mellitus with other skin ulcer (principal); L97.811 Non-pressure chronic ulcer of other part of right lower leg limited to breakdown of skin; E11.36 Type 2 diabetes mellitus with diabetic cataract; I11.0 Hypertensive heart disease with heart failure; I50.9 Heart failure, unspecified; J44.9 Chronic obstructive pulmonary disease, unspecified; F41.9 Anxiety disorder, unspecified; F32.9 Major depressive disorder, single episode, unspecified; E78.5 Hyperlipidemia, unspecified; M19.90 Unspecified osteoarthritis, unspecified site; I48.0 Paroxysmal atrial fibrillation; I25.2 Old myocardial infarction; I25.10 Atherosclerotic heart disease of native coronary artery without angina pectoris; E66.01 Morbid (severe) obesity due to excess calories; Z68.41 Body mass index [BMI] 40.0-44.9, adult; Z87.891 Personal history of nicotine dependence; Z90.710 Acquired absence of both cervix and uterus | CPT/HCPCS: 29581 ==

== ENCOUNTER → 2018-07-11 | Outpatient (CLI) | payer MEDICARE, OTHER ==
[~2018-07-11] MED LIST changes: -DILT120C80 PO; +DILT120C85 PO
== END | disposition home or self-care (01) ==
LOC: PMGWOUND 10:09
PROVIDERS: ATTEND Preventive Medicine Undersea and Hyperbaric Medicine
DX: E11.622 Type 2 diabetes mellitus with other skin ulcer (principal); L97.818 Non-pressure chronic ulcer of other part of right lower leg with other specified severity; I87.2 Venous insufficiency (chronic) (peripheral); E11.36 Type 2 diabetes mellitus with diabetic cataract; I11.0 Hypertensive heart disease with heart failure; I50.9 Heart failure, unspecified; J44.9 Chronic obstructive pulmonary disease, unspecified; F41.9 Anxiety disorder, unspecified; F32.9 Major depressive disorder, single episode, unspecified; E78.5 Hyperlipidemia, unspecified; M19.90 Unspecified osteoarthritis, unspecified site; I48.0 Paroxysmal atrial fibrillation; I25.2 Old myocardial infarction; I25.10 Atherosclerotic heart disease of native coronary artery without angina pectoris; E66.01 Morbid (severe) obesity due to excess calories; Z68.41 Body mass index [BMI] 40.0-44.9, adult; Z87.891 Personal history of nicotine dependence; Z90.710 Acquired absence of both cervix and uterus
CPT/HCPCS: 99213

== ENCOUNTER → 2019-01-30 | Day surgery (SDC) | payer MEDICARE, OTHER ==
[~2019-01-30] MED LIST changes: -CALC500T PO; +CALC500T31 PO; +GLYCOPYRROLATE 1 MG/5 ML VIAL. ONE; +IV RINGERS,LACTATED 1000ML 1,000 ML IV SCH; +LIDOCAINE 1% PF 2 ML VIAL. ID PRN; +LIDOCAINE 2% PF 5 ML VIAL. ONE; -LINA145C PO; +LINZESS145 MCG PO; +MIDAZOLAM HCL/PF 2 MG/2 ML VIAL. IV PRN; +PROPOFOL 40 ML IV ONE; +ePHEDrine PF IN SALINE 50 MG/10 ML SYRINGE. IV ONE; +fentaNYL PF VIAL 100 MCG/2 ML VIAL IV PRN
[2019-01-30 08:15] VITALS: BP 130/73
== END ==
LOC: ENDOS 06:15
PROVIDERS: ATTEND Internal Medicine Gastroenterology
DX: K64.0 First degree hemorrhoids (principal); K29.50 Unspecified chronic gastritis without bleeding; D50.0 Iron deficiency anemia secondary to blood loss (chronic); K63.89 Other specified diseases of intestine
CPT/HCPCS: 43235; 45378; J0171; J2001; J2704; J3490

== ENCOUNTER 2019-07-26 16:24 | Inpatient (IN) | payer MEDICARE, OTHER ==
[~2019-07-26] VITALS: Ht 165.1 cm; Wt 127.0 kg
[~2019-07-26 16:24] MED LIST changes: -DIGO125T PO; +DIGO125T3 PO; -DILT120C85 PO; +DILT120C99 PO; -GLIM2TAB2 PO; +GLIM2TAB3 PO; -GLYCOPYRROLATE 1 MG/5 ML VIAL. ONE; -IV RINGERS,LACTATED 1000ML 1,000 ML IV SCH; -LIDOCAINE 1% PF 2 ML VIAL. ID PRN; -LIDOCAINE 2% PF 5 ML VIAL. ONE; -MIDAZOLAM HCL/PF 2 MG/2 ML VIAL. IV PRN; -PROPOFOL 40 ML IV ONE; -ePHEDrine PF IN SALINE 50 MG/10 ML SYRINGE. IV ONE; -fentaNYL PF VIAL 100 MCG/2 ML VIAL IV PRN
--- NOTE | 2019-07-26 18:05 | HP ---
ADMIT DATE: 07/26/2019 CHIEF COMPLAINT AND HISTORY OF PRESENT ILLNESS: This 69-year-old white female is well known to me in followup in the office. The patient is a couple of days out of [facility] and has developed a cough with large amounts of green phlegm. She has become extremely short of breath with exertion. O2 sats have been dropping into the 60s with any sort of exertion. She was seen in the office on the day of admission, appeared quite ill, and admitted for presumed exacerbation of chronic obstructive pulmonary disease. PAST MEDICAL HISTORY: Well documented on old charts includes COPD, atherosclerotic heart disease, diabetes, heart failure, iron deficiency anemia, CO2 retention, hyperlipidemia, etc. MEDICATIONS: Brought with the patient, listed on the computer and have been addressed. ALLERGIES: SHE IS ALLERGIC TO STRAWBERRIES. SOCIAL HISTORY: She is a reformed smoker, , nondrinker, does not use drugs. Lives at home alone. FAMILY HISTORY: Noncontributory. REVIEW OF SYSTEMS: As that is mentioned above, she also does admit to getting extremely lightheaded, woozy with exertion in addition to the shortness of breath. PHYSICAL EXAMINATION: GENERAL: She is well-developed, well-nourished white female who appears ill and pale. VITAL SIGNS: Stable. She is afebrile. HEAD, EYES, EARS, NOSE AND THROAT: Unremarkable. She does wear glasses. NECK: Supple, without adenopathy or thyromegaly. CHEST: Reveals decreased breath sounds bilaterally with diffuse wheezing. HEART: Regular rate and rhythm without S3, S4, or murmur. ABDOMEN: Soft, nontender, without hepatosplenomegaly or masses. EXTREMITIES: Without cyanosis, clubbing, or edema. She does have still a warm left knee where she developed a hemarthrosis from a fall a month or more ago. NEUROLOGIC: She is intact. IMPRESSION: 1. Shortness of breath with hypoxemia, likely related to an exacerbation of chronic obstructive pulmonary disease with bronchitis. 2. Other problems listed above. PLAN: The patient has been admitted. Labs and chest x-ray will be checked. The patient will be monitored, managed, and treated appropriately. KEVON MALIK MD DR: ROHIT/meily JOB#: [id number] / [id number]
[2019-07-26 19:55] VITALS: BP 122/51
[2019-07-26] MEDS ORDERED: OXYC5CAP PO (19:57)
[2019-07-26] MEDS ORDERED: ACETAMINOPHEN 325 MG TABLET. PO PRN (20:00)
[2019-07-26] MEDS ORDERED: NITROGLYCERIN SUBLINGUAL 0.4 MG BOTTLE OF 25. SL PRN (20:00)
[2019-07-26] MEDS ORDERED: NON FORMULARY ITEM (Albuterol Sulfate (Albuterol Sulfate Conc Neb Soln) 1 VIAL) NEB PRN (20:00)
[2019-07-26] MEDS ORDERED: NON FORMULARY ITEM (Budesonide/Formoterol Fumarate (Symbicort 160-4.5 Mcg Inhaler) 2 PUFF) IH SCH (21:00)
[2019-07-26] MEDS ORDERED: NON FORMULARY ITEM (Ipratropium/Albuterol Sulfate (Combivent Respimat Inhal) 2 INH) IH SCH (21:00)
[2019-07-26] MEDS ORDERED: IPRATROPIUM BROMIDE 0.5 MG/2.5 ML NEBU. NEB SCH (21:00)
[2019-07-26] MEDS: cefTRIAXone IV Push 1 GM VIAL. IVP SCH (21:22)
[2019-07-26] MEDS: ATORVASTATIN CALCIUM 40 MG TABLET. PO SCH (21:23)
[2019-07-26] MEDS: methylPREDNISolone SOD SUCC PF 40 MG/ML VIAL. IV SCH (21:23)
[2019-07-26] MEDS: IV NORMAL SALINE 1000ML BAG 1,000 ML IV SCH (21:23)
[2019-07-26] MEDS: DOCUSATE SODIUM 100 MG CAPSULE. PO SCH (21:24)
[2019-07-26] MEDS: oxyCODONE IR 5 MG TABLET PO PRN ×2 (21:24→22:43)
[2019-07-26] MEDS: AMITRIPTYLINE HCL 25 MG TABLET. PO SCH (21:24)
[2019-07-26] MEDS: BUDESONIDE 0.5 MG/2 ML NEBU. NEB SCH (21:31)
[2019-07-26] MEDS: IPRATRPIUM/ALBUTEROL 0.5/2.5MG 3 ML NEBU. NEB SCH (21:31)
[2019-07-26 23:30] VITALS: BP 122/60
[2019-07-27] MEDS ORDERED: ALBUTEROL SULFATE 2.5 MG/3 ML NEBU. NEB SCH
[2019-07-27] MEDS ORDERED: ALBUTEROL SULFATE 2.5 MG/3 ML NEBU. NEB PRN (00:30)
[2019-07-27 03:05] VITALS: BP 118/65
[2019-07-27 03:33] LABS: BASO % 0 % (0-3); EOS % 0 % (0-3); GFR 123.1; HEMATOCRIT 34.9 % (36.0-47.0); HEMOGLOBIN 10.6 g/dL (12.0-15.5); LYMPH # 0.1 x10^3/uL (1.0-4.8); LYMPH % 2 % (24-48); MEAN CORPUSCULAR HEMOGLOBIN 28 pg (25-35); MEAN CORPUSCULAR HGB CONC 30 g/dL (31-37); MEAN CORPUSCULAR VOLUME 92 fL (79-100); MONO # 0.1 x10^3/uL (0.0-1.1); MONO % 2 % (0-9); NEUT # 5.5 x10^3/uL (1.8-7.7); NEUT % 96 % (31-73); PLATELET COUNT 176 x10^3/uL (140-400); RED BLOOD COUNT 3.81 x10^6/uL (3.50-5.40); RED CELL DISTRIBUTION WIDTH 19.6 % (11.5-14.5); TOTAL BILIRUBIN 0.3 mg/dL (0.2-1.0); WHITE BLOOD COUNT 5.8 x10^3/uL (4.0-11.0)
[2019-07-27 03:35] LABS: ALBUMIN 2.7 g/dL (3.4-5.0); ALBUMIN/GLOBULIN RATIO 0.8 (1.0-1.7); CALCIUM 8.2 mg/dL (8.5-10.1); CREATININE 0.5 mg/dL (0.6-1.0); POTASSIUM 3.8 mmol/L (3.5-5.1)
[2019-07-27] MEDS: methylPREDNISolone SOD SUCC PF 40 MG/ML VIAL. IV SCH ×3 (05:48→21:06)
[2019-07-27] MEDS: IV NORMAL SALINE 1000ML BAG 1,000 ML IV SCH ×2 (05:49→15:45)
[2019-07-27 07:00] VITALS: BP 141/84
[2019-07-27] MEDS: IPRATRPIUM/ALBUTEROL 0.5/2.5MG 3 ML NEBU. NEB SCH ×4 (07:33→19:38)
[2019-07-27] MEDS: BUDESONIDE 0.5 MG/2 ML NEBU. NEB SCH ×2 (07:33→19:38)
--- NOTE | 2019-07-27 08:52 | RAD ---
Chest, PA and Lateral: Technique: PA and lateral views of the chest were obtained. History: COPD. Comparison: 06/15/2017. Findings: Mild cardiomegaly. Mild diffuse prominent appearing bilateral interstitial lung markings likely interstitial infiltrates or edema. Moderate degenerative changes thoracic spine. Calcified granuloma left lung. IMPRESSION: Mild prominent bilateral interstitial lung markings likely interstitial infiltrates or edema. Electronically signed by: Stevan Feliciano MD (07/27/2019 8:49 AM) [facility]
[2019-07-27] MEDS: ASPIRIN CHEWABLE 81 MG TABLET. PO SCH (08:58)
[2019-07-27] MEDS: VENLAFAXINE 50 MG TABLET. PO SCH ×3 (08:58→20:56)
[2019-07-27] MEDS: CALCIUM CARBONATE 500 MG TABLET PO PRN (08:59)
[2019-07-27] MEDS: LISINOPRIL 5 MG TABLET. PO SCH (08:59)
[2019-07-27] MEDS: metFORMIN 500 MG TABLET PO SCH ×2 (09:00→17:19)
[2019-07-27] MEDS ORDERED: predniSONE 10 MG TABLET PO SCH (09:00)
[2019-07-27] MEDS: FERROUS SULFATE 325 MG TABLET. PO SCH (09:00)
[2019-07-27] MEDS: CALCIUM CARB/VIT D3 500/200 TABLET. PO SCH (09:00)
[2019-07-27] MEDS: DIGOXIN 125 MCG TABLET. PO SCH (09:00)
[2019-07-27] MEDS: DOCUSATE SODIUM 100 MG CAPSULE. PO SCH ×2 (09:01→20:56)
[2019-07-27] MEDS: GLIMEPIRIDE 2 MG TABLET. PO SCH (09:01)
[2019-07-27] MEDS: FUROSEMIDE 20 MG TABLET PO SCH (09:01)
--- NOTE | 2019-07-27 10:33 | PDOC ---
GENERAL General: vss and afebrile. Hb 10.6. O2 sats at 90 with 5L/NC. wearing trilogy at night. very fatigued. chest diffuse wheezes but better air exchange, heart regular, abdomen benign. no significant edema. CO2 37, albumin 2.7. prominent bilateral interstitial markings on cxr. will continue present as improved and ask therapy to mobilize. VITAL SIGNS/I&O Vital Signs/I&O: Vital Signs Date Time Temp Pulse Resp B/P (MAP) Pulse Ox O2 Delivery O2 Flow Rate FiO2 07/27/19 09:00 74 141/84 07/27/19 08:00 Nasal Cannula 5.0 07/27/19 07:33 92 07/27/19 07:00 98.2 14 98.2 I & O 07/26/19 07/26/19 07/27/19 15:00 23:00 07:00 Intake Total 350 ml 200 ml Balance 350 ml 200 ml ALLERGIES Allergies: Allergies Coded Allergies Type Severity Reaction Last Updated Verified strawberry Allergy Intermediate 01/30/19 Yes No Known Medication Allergies Allergy Unknown 01/30/19 Yes MEDS Medications: Current Medications Medications (Trade) Dose Ordered Sig/Zulma Route PRN Reason Start Time Stop Time Status Last Admin Dose Admin Ceftriaxone Sodium (Rocephin) 1 gm Q24H IVP 07/26/19 20:00 07/26/19 21:22 Methylprednisolone Sodium Succinate (SOLU-Medrol 40MG VIAL) 40 mg Q8HRS IV 07/26/19 22:00 07/27/19 05:48 Sodium Chloride 1,000 ml @ 100 mls/hr Q10H IV 07/26/19 19:45 07/27/19 05:49 Acetaminophen (Tylenol) 650 mg PRN Q6HRS PRN PO MILD PAIN 1-3 07/26/19 20:00 07/27/19 09:12 Amitriptyline HCl (Elavil) 25 mg QHS PO 07/26/19 21:00 07/26/19 21:24 Aspirin (Children'S Aspirin) 81 mg DAILY PO 07/27/19 09:00 07/27/19 08:58 Calcium Carbonate/ Glycine (Oscal) 500 mg PRN Q6HRS PRN PO HEARTBURN / GAS 07/26/19 20:00 07/27/19 08:59 Digoxin (Lanoxin) 125 mcg DAILY PO 07/27/19 09:00 07/27/19 09:00 Diltiazem HCl (Cardizem 24hr Cd) 180 mg DAILY PO 07/27/19 09:00 07/27/19 09:00 Docusate Sodium (Colace) 100 mg BID PO 07/26/19 21:00 07/27/19 09:01 Ferrous Sulfate (Feosol) 325 mg DAILY PO 07/27/19 09:00 07/27/19 09:00 Furosemide (Lasix) 20 mg DAILY PO 07/27/19 09:00 07/27/19 09:01 Glimepiride (Amaryl) 2 mg DAILY PO 07/27/19 09:00 07/27/19 09:01 Metformin HCl (Glucophage) 500 mg BIDWMEALS PO 07/27/19 08:00 07/27/19 09:00 Venlafaxine HCl (Effexor) 50 mg TID PO 07/27/19 09:00 07/27/19 08:58 Calcium/Vitamin D (Oscal D 500mg/ 200uts) 1 tab DAILY PO 07/27/19 09:00 07/27/19 09:00 Lisinopril (Prinivil) 2.5 mg DAILY PO 07/27/19 09:00 07/27/19 08:59 Oxycodone HCl (Roxicodone) 2.5 mg PRN Q6HRS PRN PO MODERATE PAIN 07/26/19 20:45 07/26/19 22:43 Atorvastatin Calcium (Lipitor) 40 mg QHS PO 07/26/19 21:00 07/26/19 21:23 Albuterol/ Ipratropium (Duoneb) 3 ml RTQID NEB 07/26/19 20:30 07/27/19 07:33 Budesonide (Pulmicort) 0.5 mg RTBID NEB 07/26/19 21:00 07/27/19 07:33 LAB Lab: Laboratory Tests Test 07/27/19 02:00 White Blood Count 5.8 x10^3/uL (4.0-11.0) Red Blood Count 3.81 x10^6/uL (3.50-5.40) Hemoglobin 10.6 g/dL (12.0-15.5) L Hematocrit 34.9 % (36.0-47.0) L Mean Corpuscular Volume 92 fL (79-100) Mean Corpuscular Hemoglobin 28 pg (25-35) Mean Corpuscular Hemoglobin Concent 30 g/dL (31-37) L Red Cell Distribution Width 19.6 % (11.5-14.5) H Platelet Count 176 x10^3/uL (140-400) Neutrophils (%) (Auto) 96 % (31-73) H Lymphocytes (%) (Auto) 2 % (24-48) L Monocytes (%) (Auto) 2 % (0-9) Eosinophils (%) (Auto) 0 % (0-3) Basophils (%) (Auto) 0 % (0-3) Neutrophils # (Auto) 5.5 x10^3/uL (1.8-7.7) Lymphocytes # (Auto) 0.1 x10^3/uL (1.0-4.8) L Monocytes # (Auto) 0.1 x10^3/uL (0.0-1.1) Eosinophils # (Auto) 0.0 x10^3/uL (0.0-0.7) Basophils # (Auto) 0.0 x10^3/uL (0.0-0.2) Sodium Level 141 mmol/L (136-145) Potassium Level 3.8 mmol/L (3.5-5.1) Chloride Level 101 mmol/L (98-107) Carbon Dioxide Level 37 mmol/L (21-32) H Anion Gap 3 (6-14) L Blood Urea Nitrogen 8 mg/dL (7-20) Creatinine 0.5 mg/dL (0.6-1.0) L Estimated GFR (Cockcroft-Gault) 123.1 BUN/Creatinine Ratio 16 (6-20) Glucose Level 172 mg/dL (70-99) H Calcium Level 8.2 mg/dL (8.5-10.1) L Total Bilirubin 0.3 mg/dL (0.2-1.0) Aspartate Amino Transferase (AST) 18 U/L (15-37) Alanine Aminotransferase (ALT) 13 U/L (14-59) L Alkaline Phosphatase 57 U/L (46-116) Total Protein 6.0 g/dL (6.4-8.2) L Albumin 2.7 g/dL (3.4-5.0) L Albumin/Globulin Ratio 0.8 (1.0-1.7) L Laboratory Tests 07/27/19 02:00 Laboratory Tests 07/27/19 02:00 KEVON MALIK MD Jul 27, 2019 10:33
[2019-07-27 11:00] VITALS: BP 139/72
[2019-07-27 15:00] VITALS: BP 116/54
[2019-07-27] MEDS: RIVAROXABAN 10 MG TABLET. PO SCH (17:19)
[2019-07-27 19:18] VITALS: BP 130/61
[2019-07-27] MEDS: LACTOBACILLUS RHAMNOSUS GG 1 CAPSULE. PO SCH (20:56)
[2019-07-27] MEDS: ATORVASTATIN CALCIUM 40 MG TABLET. PO SCH (20:56)
[2019-07-27] MEDS: cefTRIAXone IV Push 1 GM VIAL. IVP SCH (20:56)
[2019-07-27] MEDS: AMITRIPTYLINE HCL 25 MG TABLET. PO SCH (20:56)
[2019-07-27] MEDS: oxyCODONE IR 5 MG TABLET PO PRN (22:35)
[2019-07-27 23:16] LABS: BILIRUBIN,URINE NEGATIVE (NEG); CLARITY,URINE CLEAR; COLOR,URINE YELLOW; NITRITE,URINE NEGATIVE (NEG); PROTEIN,URINE NEGATIVE (NEG-TRACE); UROBILINOGEN,URINE 0.2 mg/dL (0.2 mg/dL)
[2019-07-27 23:39] LABS: BACTERIA,URINE 0 /HPF (0-FEW); RBC,URINE 0 /HPF (0-2); SQUAMOUS EPITHELIAL CELL,UR MOD /LPF; WBC,URINE OCC /HPF (0-4)
[2019-07-27 23:43] VITALS: BP 122/46
[2019-07-28] MEDS: IV NORMAL SALINE 1000ML BAG 1,000 ML IV SCH (01:45)
[2019-07-28 03:44] VITALS: BP 140/59
[2019-07-28] MEDS: methylPREDNISolone SOD SUCC PF 40 MG/ML VIAL. IV SCH ×3 (05:31→21:07)
[2019-07-28 07:00] VITALS: BP 143/69
[2019-07-28] MEDS: metFORMIN 500 MG TABLET PO SCH ×2 (08:20→17:29)
[2019-07-28] MEDS: FERROUS SULFATE 325 MG TABLET. PO SCH (08:20)
[2019-07-28] MEDS: CALCIUM CARBONATE 500 MG TABLET PO PRN (08:20)
[2019-07-28] MEDS: FUROSEMIDE 20 MG TABLET PO SCH (08:21)
[2019-07-28] MEDS: VENLAFAXINE 50 MG TABLET. PO SCH ×3 (08:22→21:08)
[2019-07-28] MEDS: DOCUSATE SODIUM 100 MG CAPSULE. PO SCH ×2 (08:22→21:08)
[2019-07-28] MEDS: LISINOPRIL 5 MG TABLET. PO SCH (08:23)
[2019-07-28] MEDS: GLIMEPIRIDE 2 MG TABLET. PO SCH (08:24)
[2019-07-28] MEDS: DIGOXIN 125 MCG TABLET. PO SCH (08:24)
[2019-07-28] MEDS: ASPIRIN CHEWABLE 81 MG TABLET. PO SCH (08:24)
[2019-07-28] MEDS: LACTOBACILLUS RHAMNOSUS GG 1 CAPSULE. PO SCH ×2 (08:24→21:07)
[2019-07-28] MEDS: CALCIUM CARB/VIT D3 500/200 TABLET. PO SCH (08:29)
[2019-07-28] MEDS: IPRATRPIUM/ALBUTEROL 0.5/2.5MG 3 ML NEBU. NEB SCH ×4 (08:40→20:37)
[2019-07-28] MEDS: BUDESONIDE 0.5 MG/2 ML NEBU. NEB SCH ×2 (08:41→20:37)
--- NOTE | 2019-07-28 10:44 | PDOC ---
GENERAL General: vss and afebrile. awake and alert. less sob with walking but still desat to 70% walking to desk. cough is lessening up somewhat. chest better air movement, heart regular, abdomen benign, left knee still swollen and warm. will dc iv fluids as taking po well and otherwise same. VITAL SIGNS/I&O Vital Signs/I&O: Vital Signs Date Time Temp Pulse Resp B/P (MAP) Pulse Ox O2 Delivery O2 Flow Rate FiO2 07/28/19 08:43 94 Nasal Cannula 5.0 07/28/19 08:24 67 143/69 07/28/19 07:00 98.0 17 98.0 I & O 07/27/19 07/27/19 07/28/19 15:00 23:00 07:00 Intake Total 150 ml 150 ml Balance 150 ml 150 ml ALLERGIES Allergies: Allergies Coded Allergies Type Severity Reaction Last Updated Verified strawberry Allergy Intermediate 01/30/19 Yes No Known Medication Allergies Allergy Unknown 01/30/19 Yes MEDS Medications: Current Medications Medications (Trade) Dose Ordered Sig/Zulma Route PRN Reason Start Time Stop Time Status Last Admin Dose Admin Rivaroxaban (Xarelto) 20 mg DAILYWSUP PO 07/27/19 17:00 07/27/19 17:19 Lactobacillus Rhamnosus (Culturelle) 1 cap BID PO 07/27/19 21:00 07/28/19 08:24 LAB Lab: Laboratory Tests Test 07/27/19 20:30 Urine Collection Type Unknown Urine Color Yellow Urine Clarity Clear Urine pH 6.0 Urine Specific [place] 1.015 Urine Protein Negative mg/dL (NEG-TRACE) Urine Glucose (UA) 500 mg/dL (NEG) Urine Ketones (Stick) Negative mg/dL (NEG) Urine Blood Negative (NEG) Urine Nitrite Negative (NEG) Urine Bilirubin Negative (NEG) Urine Urobilinogen Dipstick 0.2 mg/dL (0.2 mg/dL) Urine Leukocyte Esterase Negative (NEG) Urine RBC 0 /HPF (0-2) Urine WBC Occ /HPF (0-4) Urine Squamous Epithelial Cells Mod /LPF Urine Bacteria 0 /HPF (0-FEW) Urine Mucus Slight /LPF KEVON MALIK MD Jul 28, 2019 10:44
[2019-07-28 10:46] VITALS: BP 148/64
[2019-07-28 15:00] VITALS: BP 127/61
[2019-07-28] MEDS: RIVAROXABAN 10 MG TABLET. PO SCH (17:30)
[2019-07-28 19:00] VITALS: BP 125/59
[2019-07-28] MEDS: ATORVASTATIN CALCIUM 40 MG TABLET. PO SCH (21:07)
[2019-07-28] MEDS: AMITRIPTYLINE HCL 25 MG TABLET. PO SCH (21:07)
[2019-07-28] MEDS: cefTRIAXone IV Push 1 GM VIAL. IVP SCH (21:07)
[2019-07-28] MEDS: oxyCODONE IR 5 MG TABLET PO PRN (21:08)
[2019-07-28 23:00] VITALS: BP 134/59
[2019-07-29 03:00] VITALS: BP 136/64
[2019-07-29] MEDS: methylPREDNISolone SOD SUCC PF 40 MG/ML VIAL. IV SCH ×3 (05:36→21:16)
[2019-07-29 07:36] VITALS: BP 142/58
[2019-07-29] MEDS: IPRATRPIUM/ALBUTEROL 0.5/2.5MG 3 ML NEBU. NEB SCH ×4 (08:01→19:58)
[2019-07-29] MEDS: BUDESONIDE 0.5 MG/2 ML NEBU. NEB SCH ×2 (08:01→19:58)
[2019-07-29] MEDS: LACTOBACILLUS RHAMNOSUS GG 1 CAPSULE. PO SCH ×2 (09:15→21:16)
[2019-07-29] MEDS: VENLAFAXINE 50 MG TABLET. PO SCH ×3 (09:15→21:00)
[2019-07-29] MEDS: DOCUSATE SODIUM 100 MG CAPSULE. PO SCH ×2 (09:15→21:16)
[2019-07-29] MEDS: CALCIUM CARB/VIT D3 500/200 TABLET. PO SCH (09:15)
[2019-07-29] MEDS: metFORMIN 500 MG TABLET PO SCH ×2 (09:15→17:30)
[2019-07-29] MEDS: DIGOXIN 125 MCG TABLET. PO SCH (09:16)
[2019-07-29] MEDS: FERROUS SULFATE 325 MG TABLET. PO SCH (09:16)
[2019-07-29] MEDS: GLIMEPIRIDE 2 MG TABLET. PO SCH (09:16)
[2019-07-29] MEDS: FUROSEMIDE 20 MG TABLET PO SCH (09:17)
[2019-07-29] MEDS: ASPIRIN CHEWABLE 81 MG TABLET. PO SCH (09:17)
[2019-07-29] MEDS: LISINOPRIL 5 MG TABLET. PO SCH (09:17)
--- NOTE | 2019-07-29 10:04 | NUR ---
SW following pt for dc planning. Chart reviewed and discussed with RN. Pt lives at home alone and uses 02 at home. PT/OT rec SNU. Attempted to meet with pt but pt was asleep and did not awaken when called. SW will attempt to meet with pt again. Per RN, pt is very Wheezy today.
[2019-07-29 10:38] VITALS: BP 147/75
--- NOTE | 2019-07-29 11:55 | NUR ---
JOSE MANUEL spoke with pt regarding SNU. Pt reported she was just discharged from [facility] after being hospitalized at . Pt would like to go to [facility] if she is accepted. Pt is considering AL placement but unsure if she wants to give up driving and selling her house. Discussed with Pt extensively about SNU vs AL, HH and medicare coverage. [facility]. JOSE MANUEL faxed referral to [facility]: [phone], fax: [phone]. Pt acceptance pending. Will continue to follow.
--- NOTE | 2019-07-29 12:00 | NUR ---
Patient had episodes of hemoptysis, initially coughed out bright red sputum about a teaspoon then later blood streaked phlegm. VS remained stable, no increased shortness of breath. Paged Dr. Shannon at 0900, no orders received. We'll continue to monitor.
[2019-07-29] MEDS: oxyCODONE IR 5 MG TABLET PO PRN (12:40)
[2019-07-29 14:51] VITALS: BP 135/65
--- NOTE | 2019-07-29 14:58 | PDOC ---
GENERAL General: vss and afebrile. awake and alert and less sob. chest with better air movement, heart regular, abdomen benign, left knee stable. walked to desk in therapy yesterday. baseline O2 requirements currently. PT recommends snu at [facility] and will discuss same with patient in am. VITAL SIGNS/I&O Vital Signs/I&O: Vital Signs Date Time Temp Pulse Resp B/P (MAP) Pulse Ox O2 Delivery O2 Flow Rate FiO2 07/29/19 14:51 97.9 65 18 135/65 (88) 93 Nasal Cannula 4.0 97.9 I & O 07/28/19 07/28/19 07/29/19 15:00 23:00 07:00 Intake Total 600 ml 500 ml 200 ml Balance 600 ml 500 ml 200 ml ALLERGIES Allergies: Allergies Coded Allergies Type Severity Reaction Last Updated Verified strawberry Allergy Intermediate 01/30/19 Yes No Known Medication Allergies Allergy Unknown 01/30/19 Yes KEVON MALIK MD Jul 29, 2019 14:58
--- NOTE | 2019-07-29 15:34 | NUR ---
Pt has been accepted at [facility]. Pt is notified of her days (has used 40days so far). Pt agreeable with plans. Physician notified.
[2019-07-29] MEDS: RIVAROXABAN 10 MG TABLET. PO SCH (17:30)
[2019-07-29 19:48] VITALS: BP 155/66
[2019-07-29] MEDS: ATORVASTATIN CALCIUM 40 MG TABLET. PO SCH (21:16)
[2019-07-29] MEDS: cefTRIAXone IV Push 1 GM VIAL. IVP SCH (21:16)
[2019-07-29] MEDS: AMITRIPTYLINE HCL 25 MG TABLET. PO SCH (21:16)
[2019-07-29 23:15] VITALS: BP 147/74
[2019-07-30 03:59] VITALS: BP 153/66
[2019-07-30] MEDS: methylPREDNISolone SOD SUCC PF 40 MG/ML VIAL. IV SCH ×3 (06:33→21:47)
[2019-07-30 07:00] VITALS: BP 156/72
[2019-07-30] MEDS: GLIMEPIRIDE 2 MG TABLET. PO SCH (09:04)
[2019-07-30] MEDS: VENLAFAXINE 50 MG TABLET. PO SCH ×3 (09:04→21:00)
[2019-07-30] MEDS: ASPIRIN CHEWABLE 81 MG TABLET. PO SCH (09:04)
[2019-07-30] MEDS: FERROUS SULFATE 325 MG TABLET. PO SCH (09:04)
[2019-07-30] MEDS: LACTOBACILLUS RHAMNOSUS GG 1 CAPSULE. PO SCH ×2 (09:04→21:00)
[2019-07-30] MEDS: CALCIUM CARB/VIT D3 500/200 TABLET. PO SCH (09:04)
[2019-07-30] MEDS: metFORMIN 500 MG TABLET PO SCH ×2 (09:05→17:29)
[2019-07-30] MEDS: DOCUSATE SODIUM 100 MG CAPSULE. PO SCH ×2 (09:05→21:00)
[2019-07-30] MEDS: FUROSEMIDE 20 MG TABLET PO SCH (09:05)
[2019-07-30] MEDS: LISINOPRIL 5 MG TABLET. PO SCH (09:07)
[2019-07-30] MEDS: DIGOXIN 125 MCG TABLET. PO SCH (09:07)
[2019-07-30] MEDS: BUDESONIDE 0.5 MG/2 ML NEBU. NEB SCH ×2 (09:50→20:38)
[2019-07-30] MEDS: IPRATRPIUM/ALBUTEROL 0.5/2.5MG 3 ML NEBU. NEB SCH ×4 (09:50→20:38)
[2019-07-30 11:00] VITALS: BP 147/59
[2019-07-30] MEDS: ANTI-COAG MONITOR BY PHARMACY. MC PRN (13:49)
[2019-07-30 15:00] VITALS: BP 124/50
--- NOTE | 2019-07-30 15:11 | PDOC ---
GENERAL General: vss and afebrile. awake and alert and little better daily but still significant sob walking to bathroom. chest with better breath sounds, phlegm clearing in color, heart regular, abdomen benign. continue present with likely snu by end of week. VITAL SIGNS/I&O Vital Signs/I&O: Vital Signs Date Time Temp Pulse Resp B/P (MAP) Pulse Ox O2 Delivery O2 Flow Rate FiO2 07/30/19 13:28 95 Nasal Cannula 5.0 07/30/19 11:00 98.2 72 28 147/59 (88) 98.2 I & O 07/29/19 07/29/19 07/30/19 15:00 23:00 07:00 Intake Total 600 ml 600 ml 200 ml Output Total 350 ml Balance 600 ml 250 ml 200 ml ALLERGIES Allergies: Allergies Coded Allergies Type Severity Reaction Last Updated Verified strawberry Allergy Intermediate 01/30/19 Yes No Known Medication Allergies Allergy Unknown 01/30/19 Yes MEDS Medications: Current Medications Medications (Trade) Dose Ordered Sig/Zulma Route PRN Reason Start Time Stop Time Status Last Admin Dose Admin Info (Anti-Coagulation Monitoring By Pharmacy) 1 each PRN DAILY PRN MC SEE COMMENTS 07/30/19 13:45 07/30/19 13:49 KEVON MALIK MD Jul 30, 2019 15:11
[2019-07-30] MEDS: RIVAROXABAN 10 MG TABLET. PO SCH (17:30)
[2019-07-30 19:30] VITALS: BP 150/64
[2019-07-30] MEDS: cefTRIAXone IV Push 1 GM VIAL. IVP SCH (20:00)
[2019-07-30] MEDS: ATORVASTATIN CALCIUM 40 MG TABLET. PO SCH (21:00)
[2019-07-30] MEDS: AMITRIPTYLINE HCL 25 MG TABLET. PO SCH (21:00)
[2019-07-30 23:20] VITALS: BP 130/67
[2019-07-31 03:37] VITALS: BP 152/75
[2019-07-31] MEDS: methylPREDNISolone SOD SUCC PF 40 MG/ML VIAL. IV SCH ×3 (06:39→21:44)
[2019-07-31 07:00] VITALS: BP 141/69
[2019-07-31] MEDS: BUDESONIDE 0.5 MG/2 ML NEBU. NEB SCH ×2 (08:06→21:18)
[2019-07-31] MEDS: IPRATRPIUM/ALBUTEROL 0.5/2.5MG 3 ML NEBU. NEB SCH ×4 (08:06→21:18)
[2019-07-31] MEDS: LACTOBACILLUS RHAMNOSUS GG 1 CAPSULE. PO SCH ×2 (10:15→21:44)
[2019-07-31] MEDS: DOCUSATE SODIUM 100 MG CAPSULE. PO SCH ×2 (10:15→21:44)
[2019-07-31] MEDS: CALCIUM CARBONATE 500 MG TABLET PO PRN (10:16)
[2019-07-31] MEDS: ASPIRIN CHEWABLE 81 MG TABLET. PO SCH (10:16)
[2019-07-31] MEDS: FERROUS SULFATE 325 MG TABLET. PO SCH (10:17)
[2019-07-31] MEDS: GLIMEPIRIDE 2 MG TABLET. PO SCH (10:17)
[2019-07-31] MEDS: FUROSEMIDE 20 MG TABLET PO SCH (10:17)
[2019-07-31] MEDS: DIGOXIN 125 MCG TABLET. PO SCH (10:18)
[2019-07-31] MEDS: metFORMIN 500 MG TABLET PO SCH ×2 (10:18→17:35)
[2019-07-31] MEDS: VENLAFAXINE 50 MG TABLET. PO SCH ×3 (10:18→21:44)
[2019-07-31] MEDS: LISINOPRIL 5 MG TABLET. PO SCH (10:18)
[2019-07-31] MEDS: oxyCODONE IR 5 MG TABLET PO PRN ×2 (10:33→17:35)
[2019-07-31] MEDS: CALCIUM CARB/VIT D3 500/200 TABLET. PO SCH (10:40)
[2019-07-31 11:00] VITALS: BP 136/68
--- NOTE | 2019-07-31 14:09 | PDOC ---
GENERAL General: vss and afebrile. awake and alert. slow improvement. chest with occasional whee ze, heart regular, abdomen benign. O2 at 3-4L/NC. continue present with likely snu tomorow. VITAL SIGNS/I&O Vital Signs/I&O: Vital Signs Date Time Temp Pulse Resp B/P (MAP) Pulse Ox O2 Delivery O2 Flow Rate FiO2 07/31/19 12:26 93 Nasal Cannula 3.0 07/31/19 11:00 97.3 69 24 136/68 (90) 97.3 I & O 07/30/19 07/30/19 07/31/19 15:00 23:00 07:00 Intake Total 560 ml 360 ml 300 ml Output Total 850 ml Balance 560 ml 360 ml -550 ml ALLERGIES Allergies: Allergies Coded Allergies Type Severity Reaction Last Updated Verified strawberry Allergy Intermediate 01/30/19 Yes No Known Medication Allergies Allergy Unknown 01/30/19 Yes KEVON MALIK MD Jul 31, 2019 14:09
[2019-07-31 15:00] VITALS: BP 126/51
[2019-07-31] MEDS: RIVAROXABAN 10 MG TABLET. PO SCH (17:35)
[2019-07-31 19:25] VITALS: BP 113/62
[2019-07-31] MEDS: cefTRIAXone IV Push 1 GM VIAL. IVP SCH (20:25)
[2019-07-31] MEDS: ATORVASTATIN CALCIUM 40 MG TABLET. PO SCH (21:44)
[2019-07-31] MEDS: AMITRIPTYLINE HCL 25 MG TABLET. PO SCH (21:44)
[2019-07-31 23:53] VITALS: BP 139/59
[2019-08-01 03:49] VITALS: BP 151/71
[2019-08-01] MEDS: methylPREDNISolone SOD SUCC PF 40 MG/ML VIAL. IV SCH ×3 (06:00→21:29)
[2019-08-01 07:00] VITALS: BP 113/74
[2019-08-01] MEDS: BUDESONIDE 0.5 MG/2 ML NEBU. NEB SCH ×2 (08:00→18:18)
[2019-08-01] MEDS: IPRATRPIUM/ALBUTEROL 0.5/2.5MG 3 ML NEBU. NEB SCH ×4 (08:28→18:18)
[2019-08-01] MEDS: FERROUS SULFATE 325 MG TABLET. PO SCH (08:46)
[2019-08-01] MEDS: FUROSEMIDE 20 MG TABLET PO SCH (08:46)
[2019-08-01] MEDS: CALCIUM CARB/VIT D3 500/200 TABLET. PO SCH (08:46)
[2019-08-01] MEDS: metFORMIN 500 MG TABLET PO SCH ×2 (08:46→17:06)
[2019-08-01] MEDS: ASPIRIN CHEWABLE 81 MG TABLET. PO SCH (08:46)
[2019-08-01] MEDS: DIGOXIN 125 MCG TABLET. PO SCH (08:47)
[2019-08-01] MEDS: LACTOBACILLUS RHAMNOSUS GG 1 CAPSULE. PO SCH ×2 (08:47→21:29)
[2019-08-01] MEDS: DOCUSATE SODIUM 100 MG CAPSULE. PO SCH ×2 (08:47→21:28)
[2019-08-01] MEDS: LISINOPRIL 5 MG TABLET. PO SCH (08:47)
[2019-08-01] MEDS: VENLAFAXINE 50 MG TABLET. PO SCH ×3 (08:48→21:29)
[2019-08-01] MEDS: GLIMEPIRIDE 2 MG TABLET. PO SCH (08:49)
[2019-08-01] MEDS: POLYETHYLENE GLYCOL 3350 17 GM PACKET. PO PRN (08:55)
--- NOTE | 2019-08-01 09:21 | PDOC ---
GENERAL General: vss and afebrile. awake and alert and still sob. chest still with occasional wh eeze, heart regular, and abdomen benign. will add doxycycline po and tenatively plan on dc tomorrow. VITAL SIGNS/I&O Vital Signs/I&O: Vital Signs Date Time Temp Pulse Resp B/P (MAP) Pulse Ox O2 Delivery O2 Flow Rate FiO2 08/01/19 08:49 68 113/74 08/01/19 08:39 96 Nasal Cannula 3.0 08/01/19 07:00 97.8 20 97.8 I & O 07/31/19 07/31/19 08/01/19 15:00 23:00 07:00 Intake Total 720 ml 660 ml 150 ml Output Total 1300 ml 300 ml Balance 720 ml -640 ml -150 ml ALLERGIES Allergies: Allergies Coded Allergies Type Severity Reaction Last Updated Verified strawberry Allergy Intermediate 01/30/19 Yes No Known Medication Allergies Allergy Unknown 01/30/19 Yes KEVON MALIK MD Aug 01, 2019 09:21
[2019-08-01 11:00] VITALS: BP 143/66
[2019-08-01] MEDS: DOXYCYCLINE HYCLATE 100 MG TABLET PO SCH ×2 (12:27→21:29)
[2019-08-01] MEDS: oxyCODONE IR 5 MG TABLET PO PRN (14:30)
[2019-08-01 15:02] VITALS: BP 133/64
[2019-08-01 16:53] LABS: BLOOD UREA NITROGEN 24 mg/dL (7-20); CALCIUM 8.4 mg/dL (8.5-10.1); CARBON DIOXIDE 43 mmol/L (21-32); CHLORIDE 100 mmol/L (98-107); CREATININE 0.8 mg/dL (0.6-1.0); GFR 71.5; GLUCOSE 171 mg/dL (70-99); MAGNESIUM 1.8 mg/dL (1.8-2.4); POTASSIUM 4.2 mmol/L (3.5-5.1); SODIUM 143 mmol/L (136-145)
--- NOTE | 2019-08-01 17:02 | RAD ---
EXAM: CHEST ONE VIEW. HISTORY: Chronic obstructive pulmonary disease. COMPARISON: 07/26/2019. FINDINGS: A frontal view of the chest is obtained. There is a calcified granuloma in the left upper lobe. The lungs are expanded to the 11th posterior ribs. There are no confluent infiltrates. There is no pneumothorax or pleural effusion. The heart is mildly enlarged. There are atherosclerotic calcifications of the aorta. IMPRESSION: 1. Hyperinflation is consistent with chronic obstructive pulmonary disease. No confluent infiltrates. 2. Mild cardiomegaly. Electronically signed by: Keenan Blankenship MD (08/01/2019 4:59 PM) [facility]
[2019-08-01] MEDS: RIVAROXABAN 10 MG TABLET. PO SCH (17:06)
--- NOTE | 2019-08-01 18:16 | NUR ---
Patient had a 5 beat run of V-tach around 1445, patient asymptomatic on the phone with family. Paged Dr. Shannon at 1455. Dr. Shannon called back around 1530, orders received to order BMP, BNP and Mag level and to call with abnormal results. Orders placed and awaiting for results. Will continue to monitor patient.
[2019-08-01 19:25] VITALS: BP 119/61
[2019-08-01] MEDS: cefTRIAXone IV Push 1 GM VIAL. IVP SCH (21:28)
[2019-08-01] MEDS: AMITRIPTYLINE HCL 25 MG TABLET. PO SCH (21:29)
[2019-08-01] MEDS: ATORVASTATIN CALCIUM 40 MG TABLET. PO SCH (21:29)
[2019-08-01 23:35] VITALS: BP 147/63
[2019-08-02 03:35] VITALS: BP 158/69
[2019-08-02] MEDS: methylPREDNISolone SOD SUCC PF 40 MG/ML VIAL. IV SCH ×2 (06:17→15:35)
[2019-08-02 07:00] VITALS: BP 137/62
[2019-08-02] MEDS: IPRATRPIUM/ALBUTEROL 0.5/2.5MG 3 ML NEBU. NEB SCH ×2 (08:36→11:47)
[2019-08-02] MEDS: BUDESONIDE 0.5 MG/2 ML NEBU. NEB SCH (08:37)
[2019-08-02] MEDS ORDERED: FLUCONAZOLE 100 MG TABLET. PO SCH (09:00)
[2019-08-02] MEDS ORDERED: DOXY100T PO (09:05)
[2019-08-02] MEDS ORDERED: Fluconazole PO (09:05)
--- NOTE | 2019-08-02 09:06 | SNU/HH DC ---
DISCHARGE ORDERS DISCHARGE INFORMATION: DISCHARGE DATE: Aug 02, 2019 CONDITION ON DISCHARGE: Stable CODE STATUS: Code Status: Full SENIOR CARE: SNF STAY <30 DAYS: Yes HOSPICE: HOSPICE: No HOSPICE EVAL & TREAT: No LTAC: ADMIT TO LTAC: No POST DISCHARGE ORDERS: ACTIVITY ORDERS: Activity as tolerated WEIGHT BEARING STATUS: As tolerated DIET AFTER DISCHARGE: ADA WOUND/INCISION CARE: Change dressing CHECKS AFTER DISCHARGE: CHECKS AFTER DISCHARGE: Check blood press - daily TREATMENT/EQUIPMENT ORDERS: ADAPTIVE EQUIPMENT NEEDED: None RESPIRATORY EQUIPMENT NEEDED: Oxygen Physical Therapy For: Evalulation/Treatment Occupational Therapy For: Evaluation/Treatment DISCHARGE MEDICATIONS: Home Meds Reported Medications Oxycodone Hcl (OXYCODONE HCL) 5 Mg Capsule, 2.5 MG PO PRN Q6HRS PRN for PAIN, TAB 0 Refills 07/26/19 Venlafaxine Hcl (VENLAFAXINE HCL) 75 Mg Tablet, 150 MG PO DAILY, TAB 04/30/18 Nitroglycerin (NITROGLYCERIN SubLingual) 0.4 Mg Tab.subl, 0.4 MG SL PRN Q5MIN PRN for CHEST PAIN, BOTTLE 04/30/18 Ipratropium Calvin (IPRATROPIUM BROMIDE) 0.2 Mg/1 Ml Solution, 1 VIAL NEB QID, #300 ML 5 Refills 04/30/18 Ferrous Sulfate (FERROUS SULFATE) 325 Mg Tablet, 1 TAB PO DAILY, #30 TAB 3 Refills 04/30/18 Calcium Carbonate (CALCIUM CARBONATE) 500 Mg Tablet, 500 MG PO PRN Q6HRS PRN for HEARTBURN / GAS, TAB 04/30/18 Albuterol Sulfate (ALBUTEROL SULFATE CONC NEB SOLN) 2.5 Mg/0.5 Ml Vial.neb, 1 VIAL NEB PRN Q4HRS PRN for SHORTNESS OF BREATH, #60 VIAL 1 Refill 04/30/18 Acetaminophen (TYLENOL) 325 Mg Tablet, 650 MG PO PRN Q6HRS PRN for PAIN, TAB 04/30/18 Polyethylene Glycol 3350 (MIRALAX) 17 Gm Powd.pack, 1 PACKET PO DAILY PRN for CONSTIPATION, #30 PACKET 3 Refills 06/13/17 Glimepiride (GLIMEPIRIDE) 2 Mg Tablet, 1 TAB PO DAILY, #30 TAB 5 Refills 06/13/17 Docusate Sodium (DOCUSATE SODIUM) 100 Mg Capsule, 1 CAP PO BID, #30 CAP 06/13/17 Metformin Hcl (METFORMIN HCL) 500 Mg Tablet, 500 MG PO BIDWMEALS for ANTI- DIABETIC, TAB 0 Refills 06/13/17 Digoxin (DIGOXIN) 125 Mcg Tablet, 1 TAB PO DAILY, #30 TAB 5 Refills 06/13/17 Diltiazem Hcl (DILTIAZEM 24HR CD) 180 Mg Cap.er.24h, 1 CAP PO DAILY, #30 CAP 5 Refills 06/13/17 Rivaroxaban (XARELTO) 20 Mg Tablet, 20 MG PO DAILY, TAB 06/13/17 Calcium Carbonate/Vitamin D3 (Calcium 600 + D Tablet) 1 Each Tablet, 1 EACH PO DAILY 05/19/15 Amitriptyline Hcl (AMITRIPTYLINE HCL) 25 Mg Tablet, 1 TAB PO QHS, #30 TAB 5 Refills 05/19/15 Prednisone (PREDNISONE ) 10 Mg Tablet, 10 MG PO DAILY, TAB 05/19/15 Lisinopril (LISINOPRIL) 2.5 Mg Tablet, 1 TAB PO DAILY, #30 TAB 5 Refills 05/20/14 Ipratropium/Albuterol Sulfate (COMBIVENT RESPIMAT INHAL) 4 Gm Aer.w.adap, 2 INH IH QID, INHALER 05/11/14 Budesonide/Formoterol Fumarate (SYMBICORT 160-4.5 MCG INHALER) 10.2 Gm Hfa.aer.ad, 2 PUFF IH BID, #10.6 GM 3 Refills 05/11/14 Aspirin (ASPIRIN) 81 Mg Tab.chew, 1 TAB PO DAILY, #30 TAB 3 Refills 05/11/14 Rosuvastatin Calcium (CRESTOR) 10 Mg Tablet, 1 TAB PO DAILY, #30 TAB 5 Refills 05/11/14 Furosemide (FUROSEMIDE) 20 Mg Tablet, 1 TAB PO DAILY for heart failure, #90 TAB 1 Refill 05/11/14 KEVON MALIK MD Aug 02, 2019 09:06
[2019-08-02] MEDS: DOCUSATE SODIUM 100 MG CAPSULE. PO SCH (10:41)
[2019-08-02] MEDS: VENLAFAXINE 50 MG TABLET. PO SCH ×2 (10:41→15:34)
[2019-08-02] MEDS: FUROSEMIDE 20 MG TABLET PO SCH (10:42)
[2019-08-02] MEDS: GLIMEPIRIDE 2 MG TABLET. PO SCH (10:42)
[2019-08-02] MEDS: ASPIRIN CHEWABLE 81 MG TABLET. PO SCH (10:42)
[2019-08-02] MEDS: LACTOBACILLUS RHAMNOSUS GG 1 CAPSULE. PO SCH (10:42)
[2019-08-02] MEDS: FERROUS SULFATE 325 MG TABLET. PO SCH (10:42)
[2019-08-02] MEDS: DIGOXIN 125 MCG TABLET. PO SCH (10:42)
[2019-08-02] MEDS: CALCIUM CARB/VIT D3 500/200 TABLET. PO SCH (10:42)
[2019-08-02] MEDS: metFORMIN 500 MG TABLET PO SCH (10:43)
[2019-08-02] MEDS: DOXYCYCLINE HYCLATE 100 MG TABLET PO SCH (10:43)
[2019-08-02] MEDS: LISINOPRIL 5 MG TABLET. PO SCH (10:43)
[2019-08-02] MEDS: POLYETHYLENE GLYCOL 3350 17 GM PACKET. PO PRN (10:53)
[2019-08-02 11:00] VITALS: BP 133/53
--- NOTE | 2019-08-02 11:11 | NUR ---
JOSE MANUEL faxed orders to [facility] but there is no Rx for pain medication. Haylee will call Dr. Shannon's office. Pt is not able to dc today if there is no Rx for pain medication. Discussed with SAIDA. Addendum: 08/02/19 at 1113 by ROB RICHARD Pt also asking if she could drive herself to [facility] and [facility] discussed with SAIDA pt will need to transport via facility arranged transport mode.
[2019-08-02] MEDS: oxyCODONE IR 5 MG TABLET PO PRN (12:49)
--- NOTE | 2019-08-02 14:02 | NUR ---
[facility] able to take pt. Transport arranged by facility at 1530. RN notified.
[2019-08-02] MEDS: ANTI-COAG MONITOR BY PHARMACY. MC PRN (14:23)
--- NOTE | 2019-08-02 16:12 | DS ---
DATE OF DISCHARGE: 08/02/2019 PRIMARY DIAGNOSES: 1. Acute exacerbation of chronic obstructive pulmonary disease. 2. Acute on chronic hypoxic respiratory failure. 3. Atherosclerotic heart disease. 4. Diabetes. 5. Iron deficiency anemia. 6. CO2 retention. CHIEF COMPLAINT AND HISTORY OF PRESENT ILLNESS: This 69-year-old white female admitted through the office on the day of admission with extreme hypoxia and shortness of breath, coughing up large amounts of green phlegm with an exacerbation of her COPD and O2 sats in the 60s. SUMMARY OF STAY: The patient was admitted and treated throughout the stay with IV antibiotics, pulmonary toilet, IV steroids, IV fluids with slow, but steady improvement. She is seen by Therapy, felt she needed SNU for deconditioning and this was accomplished at the time of discharge. She was transitioned to p.o. steroids and antibiotics and felt ready for detention on the day of dismissal and this was accomplished. DISPOSITION: The patient is transferred to SNU. Please see orders regarding diet, medication, activity, etc. We will continue to see her there. KEVON MALIK MD DR: ROHIT/emily JOB#: [id number] / [id number]
--- NOTE | 2019-08-02 16:29 | NUR ---
Discharge Note: [facility] [address] [place] [address] Discharge instructions and discharge home medications reviewed with Patient and a copy given. All questions have been answered and understanding verbalized. Discontinued lines and drains:peripheral line Patient discharged to Rehab Facility with Ambulance Personnel via Wheelchair report called to Luisa mohan [phone]
== END 2019-08-02 16:00 | DRG 189 ==
LOC: 6 SOUTH 16:24
PROVIDERS: ADMIT Family Medicine; ATTEND Family Medicine
PROC: 5A09357 Assistance with Respiratory Ventilation, Less than 24 Consecutive Hours, Continuous Positive Airway Pressure (ICD-10-PCS; principal; 2019-07-26)
PROC: 5A09357 Assistance with Respiratory Ventilation, Less than 24 Consecutive Hours, Continuous Positive Airway Pressure (ICD-10-PCS; 2019-07-27)
PROC: 5A09357 Assistance with Respiratory Ventilation, Less than 24 Consecutive Hours, Continuous Positive Airway Pressure (ICD-10-PCS; 2019-07-28)
PROC: 5A09357 Assistance with Respiratory Ventilation, Less than 24 Consecutive Hours, Continuous Positive Airway Pressure (ICD-10-PCS; 2019-07-29)
PROC: 5A09357 Assistance with Respiratory Ventilation, Less than 24 Consecutive Hours, Continuous Positive Airway Pressure (ICD-10-PCS; 2019-07-30)
PROC: 5A09357 Assistance with Respiratory Ventilation, Less than 24 Consecutive Hours, Continuous Positive Airway Pressure (ICD-10-PCS; 2019-07-31)
PROC: 5A09357 Assistance with Respiratory Ventilation, Less than 24 Consecutive Hours, Continuous Positive Airway Pressure (ICD-10-PCS; 2019-08-01)
DX: J96.21 Acute and chronic respiratory failure with hypoxia (principal); J44.1 Chronic obstructive pulmonary disease with (acute) exacerbation; E87.2 Acidosis; I25.10 Atherosclerotic heart disease of native coronary artery without angina pectoris; E11.9 Type 2 diabetes mellitus without complications; I50.9 Heart failure, unspecified; D50.9 Iron deficiency anemia, unspecified; E78.5 Hyperlipidemia, unspecified; Z87.891 Personal history of nicotine dependence; Z91.018 Allergy to other foods
CPT/HCPCS: 36415; 71045; 71046; 80048; 80053; 81001; 83735; 83880; 85025; 94640; 94760; J0696; J2920; J7030; J7620; J7626; 97116; 97530; 97535; G0378

== ENCOUNTER → 2021-02-25 | Outpatient (CLI) | payer MEDICARE, OTHER ==
[2019-08-15 15:07] VITALS: BP 110/64
[~2021-02-25] MED LIST changes: +CRESTOR40 MG PO; +DILT240C33 PO; -FAMC500T PO; +FAMC500T3 PO; +FURO40TA4 PO; +Fluconazole PO; -GLIM2TAB3 PO; +GLIM2TAB7 PO; +OXYC5CAP PO; +PANT40TA77 PO
--- NOTE | 2021-02-25 12:23 | RAD ---
EXAMINATION: CT head without IV contrast INDICATION:70 years, Female, fall, history of lung cancer.. COMPARISON: PET/CT dated 01/26/2021 TECHNIQUE: Spiral acquisition of contiguous images from the skull base to the vertex were obtained. S agittal and coronal 2D reformatted series were provided by the technologist. Soft tissue and bone win puneet algorithms were reviewed. Exposure: One or more of the following individualized dose reduction techniques were utilized for thi s examination: 1. Automated exposure control 2. Adjustment of the mA and/or kV according to patient size 3. Use of iterative reconstruction technique. FINDINGS: Large area of vasogenic edema within the white matter of the right frontoparietal lobes. This edema i s associated with ill-defined 2.0 x 1.3 cm lesion in the right parietal lobe (series 2 image 21). Nei ther midline shift, intracranial hemorrhage, acute/subacute ischemic changes, nor extraaxial fluid co llections are seen. The ventricles are normal in size. Ill-defined lytic lesion in the right frontal bone (series 6 image 34), corresponds to hypermetabolic lesion seen on PET/CT scan. Large left frontal scalp hematoma, new since prior exam. The paranasal s inuses, mastoid air cells, and middle ears are clear.The orbital contents appear within normal limits . IMPRESSION: 1. Ill-defined 2.0 cm lesion in the right parietal lobe with large area of vasogenic edema in the fro ntoparietal lobes, highly suspicious for metastasis given patient's history of lung cancer. Recommend further evaluation with MRI brain without and with IV contrast. 2. Ill-defined lytic lesion in the right frontal lobe corresponds to hypermetabolic lesion seen on PE T CT scan, suspicious for metastasis. 3. Large left frontal scalp hematoma. 4. No intracranial hemorrhage. Electronically signed by: Portia Genao MD (02/25/2021 12:21 PM) [id number]
== END ==
LOC: CT 11:40
PROVIDERS: ATTEND Internal Medicine Hematology & Oncology
DX: S00.03XA Contusion of scalp, initial encounter (principal); G93.9 Disorder of brain, unspecified; R29.6 Repeated falls; W19.XXXA Unspecified fall, initial encounter; Y93.89 Activity, other specified; Y92.89 Other specified places as the place of occurrence of the external cause; Y99.8 Other external cause status
CPT/HCPCS: 70450